=== PATIENT | male | born 1965 | race Caucasian/White ===

== ENCOUNTER 2017-01-23 07:54 | Outpatient (CLI) ==
[2017-01-23 08:07] LABS: BASOPHILS % (AUTO) 0.4 % (0.0-3.0); EOSINOPHILS # (AUTO) 0.3 K/ul (0.0-0.7); EOSINOPHILS % (AUTO) 3.2 % (0.0-7.0); HEMATOCRIT 47.2 % (42.0-52.0); HEMOGLOBIN 15.9 g/dl (14.0-18.0); IMMATURE GRANULOCYTE % (AUTO) 0.2 % (0.0-5.0); LYMPHOCYTES % (AUTO) 39.9 (10.0-50.0); MEAN CORPUSCULAR HEMOGLOBIN 31.1 pg (27.0-31.0); MEAN CORPUSCULAR HGB CONC 33.7 (31.8-35.4); MEAN CORPUSCULAR VOLUME 92.2 fl (80.0-94.0); MONOCYTES # (AUTO) 0.9 K/uL (0.4-2.0); MONOCYTES % (AUTO) 8.8 (0-10); NEUTROPHILS # (AUTO) 4.8 K/ul (2.0-6.9); NEUTROPHILS % (AUTO) 47.5; PLATELET COUNT 241 10^3/uL (140-440); RED BLOOD COUNT 5.12 10^6/ul (4.70-6.10); WHITE BLOOD COUNT 10.09 K/ul (4.2-10.2)
[2017-01-23 08:49] LABS: ALBUMIN 3.7 g/dL (3.4-5.0); ALBUMIN/GLOBULIN RATIO 0.97; ANION GAP 13.3; BILIRUBIN,TOTAL 0.36 mg/dL (0.00-1.20); BUN/CREATININE RATIO 13.22; CALCIUM 9.5 mg/dL (8.2-10.2); CHOL/HDL RATIO 4.5 (4.5-6.4); CREATININE 1.21 mg/dL (0.60-1.10); POTASSIUM 4.3 mmol/L (3.5-5.1); TOTAL PROTEIN 7.5 g/dL (6.4-8.2)
== END 2017-01-23 07:55 | disposition home or self-care (01) ==
LOC: LAB 07:54
PROVIDERS: ATTEND Nurse Practitioner Family
DX: Z00.00 Encounter for general adult medical examination without abnormal findings (principal); Z72.0 Tobacco use; Z12.5 Encounter for screening for malignant neoplasm of prostate
CPT/HCPCS: 36415; 80053; 80061; 84443; 85025

== ENCOUNTER 2025-02-20 14:47 | Observation (INO) ==
[2025-02-20] MEDS: SODIUM CHLORIDE 500 ML IV ONE (15:11)
--- NOTE | 2025-02-20 15:22 | ED.PDOC ---
General ED Provider: Dr. MARIA ESTHER CHEN MD Chief Complaint: Shortness of Air Stated Complaint: Pt has h/o COPD on 2 liters of home O2 and has been diagnosed with left sided lung cancer in the past 2 weeks. Was seen here 3 days ago for SOB and diagnosed with pneumonia, pleural effusion and subsegmental PEs. He was sent home with rx for eliquis and cefdinir. He states he is taking the antibiotics as prescribed, but could not get the eliquis filled due to trouble with his insurance. He was feeling better and then started feeling more SOB last night. He went to [facility] ED and was just discharged from there 3 hours ago. Was given a dose of eliquis there. He states he started feeling SOB again just [employer] and came here. SOB mostly with any exertion. He denies increased cough, fever, chest pain, leg swelling, nausea or vomiting. He has upcoming appt with his PCP the beginning of March and does not yet have oncology appt. He states he does not have a nebulizer machine at home yet, but they are "working on getting one". Time Seen by Provider: 02/20/25 14:49 Mode of Arrival: Walk-In Information Source: Patient and Family Exam Limitations: No limitations Primary Care Provider: JORDAN QUINTANILLA MD Nursing and Triage Documentation Reviewed and Agree: Yes What is Opioid Naive?: *Opioid Naive implies the patient is not already taking opioids or not chronically receiving opioids on a daily basis. *PRN dosing is not "usually" associated with tolerance. *Patients are at higher risk of over-sedation and aspiration. What is Opioid Tolerant?: *Opioid Tolerance implies less than the expected response to an opioid. *Acquired tolerance is defined by the patient taking 60mg of oral morphine daily (or equianalgesic dose of another opioid) for 1 week or more. *Often associated with chronic pain. *May take more than usual dose to achieve desired pain control. Review of Systems Review Of Systems Constitutional: Reports No symptoms PFSH Family History Mother Cardiac disease Lung cancer FATHER Cardiac disease [place] Surgical History History of dental surgery Z92.89 - Personal history of other medical treatment (ICD-10) Physical Exam Physical Exam Appearance: Reports Cachectic Ill-appearing: None Pain Distress: None Eyes: Reports Conjunctiva clear ENT: Reports Nose normal Neck: Supple Respiratory: Reports Airway patent and Respirations nonlabored; Denies Breath sounds equal (decreased air movement to left lung. ) Cardiovascular: Reports RRR and Pulses normal GI/: Reports Soft and Nontender Musculoskeletal: Denies Edema Skin: Reports Warm and Dry Neurological: Reports Alert Psychiatric: Reports Affect appropriate Interpretation EKG Interpretation EKG Interpretation By: ED Physician Time of EKG #1: 15:23 Rate: Normal Rhythm: Sinus Ectopy: None ST Segment: Normal Interpretation: IRBBB. Radiology Interpretation Radiology Interpretation By: Radiologist Radiology Results: No acute changes Exam Interpreted: CXR Re-Evaluation Re-Evaluation Additional Comments: Discussed lab, EKG and CXR results with patient. His CXR is unchanged from 3 days ago. Labs show leukocytosis, otherwise fairly unremarkable with negative troponin, elevated BNP. Pt has had soft BP with MAP around 65, but he is not lightheaded or dizzy or otherwise symptomatic. His O2 sats on his typical 2 liters have been in high 90s and he is resting comfortably. Given his multiple ED visits, I feel he would benefit from overnight observation to monitor his BP, start him on blood thinners for PE, attempt to get home nebulizer set-up for him. Pt is agreeable to stay. I spoke with Jay Blevins hospitalist HEALTHCARE APPLICATIONS ANALYST, who has agreed to admit patient. Physician Notification Case Discussed Physician Notified: jaleesa Raymond HEALTHCARE APPLICATIONS ANALYST Time of Notification: 16:30 Comments: Agrees to admit to obs Course Course 02/20/25 15:12 02/20/25 15:15 Orders, Labs, Meds: Lab Review 02/20/25 02/20/25 15:12 15:15 WBC 15.68 H RBC 4.47 L Hgb 13.1 L Hct 41.7 L MCV 93.3 MCH 29.3 MCHC 31.4 L RDW Coeff of Debi 14.5 Plt Count 678 H Immature Gran % (Auto) 1.2 Neut % (Auto) 86.7 H Lymph % (Auto) 4.0 L Yell % (Auto) 7.3 Eos % (Auto) 0.7 Baso % (Auto) 0.1 Neut # (Auto) 13.6 H Lymph # (Auto) 0.6 Yell # (Auto) 1.2 Eos # (Auto) 0.1 Baso # (Auto) 0.0 Immature Gran # (Auto) 0.2 Sodium 136.2 Potassium 4.37 Chloride 92.5 L Carbon Dioxide 33.9 H Anion Gap 14.17 BUN 44.2 H Creatinine 1.29 H Estimated GFR (MDRD) 57.00 BUN/Creatinine Ratio 34.26 Glucose 143.9 H Calcium 12.73 H Total Bilirubin 0.61 AST 91.4 H ALT 40.6 Alkaline Phosphatase 93.0 Troponin I 0.057 NT-Pro-B Natriuret Pep 4830 H Total Protein 7.94 Albumin 3.59 Globulin 4.35 Albumin/Globulin Ratio 0.82 SARS CoV-2 RNA Rapid [place] Negative Orders Category Date Time Status EKG-(ED ONLY) Stat CARDIO 02/20/25 15:11 Completed NEBULIZER TREATMENT Stat CARDIO 02/20/25 15:17 Completed PULSE OX [CONTINUOUS PULSE OX (NURSING)] PULSEOX CARE 02/20/25 15:12 Active Sand[employer] Carrier [ED HOP SEPARATOR APPLIED] .ONCE EMERGENCY 02/20/25 15:11 Active IV [ED IV/MEDIPORT/POWERPORT] .ONCE EMERGENCY 02/20/25 15:11 Active OXYGEN [ED APPLY O2] .ONCE EMERGENCY 02/20/25 15:11 Active CBC W/ AUTO DIFF Stat LAB 02/20/25 15:12 Completed CMP [COMPREHENSIVE METABOLIC PANEL] Stat LAB 02/20/25 15:15 Completed COVID [SARS COV-2 RNA RAPID [place]] Stat LAB 02/20/25 15:15 Completed NT-PROBNP(ED) Stat LAB 02/20/25 15:15 Completed TROPONIN I Stat LAB 02/20/25 15:15 Completed 0.9 % Sodium Chloride [Saline Flush] Meds 02/20/25 15:11 Active 1 syr IVF PRN PRN Ipratropium/Albuterol Neb [Duoneb] Meds 02/20/25 15:17 Discontinued 3 ml NEB ONCE STA Sodium Chloride 0.9% [Sodium Chloride] 500 ml Meds 02/20/25 15:11 Discontinued IV BOLUS CXR [CHEST, 1V AP ONLY] Stat RADS 02/20/25 15:11 Completed Medications Generic Name Dose Route Start Last Admin Trade Name Freq PRN Reason Stop Dose Admin Sodium Chloride 1 syr 02/20/25 15:11 0.9% Sodium Chloride 10 Ml Disp.Syrin IVF PRN PRN To flush IV Discontinued Medications Generic Name Dose Route Start Last Admin Trade Name Freq PRN Reason Stop Dose Admin Albuterol/Ipratropium 3 ml 02/20/25 15:17 02/20/25 15:45 Ipratropium/Albuterol Vial.Neb NEB 02/20/25 15:18 3 ml ONCE STA Administration Sodium Chloride 500 mls @ 500 mls/hr 02/20/25 15:11 02/20/25 16:12 Sodium Chloride IV 02/20/25 16:10 Infused BOLUS ONE Infusion Vital Signs: Temp Pulse Resp BP Pulse Ox O2 Flow Rate 02/20/25 15:20 2 02/20/25 14:53 98.1 F 101 H 20 73/46 L 98 Discharge Plan Discharge Patient Disposition: PLACED OBSERVATION Discharge Problem: Shortness of breath, Mass of left lung Pulmonary embolism Qualifiers: Pulmonary embolism type: multiple subsegmental (without acute cor pulmonale) Q ualified Code(s): I26.94 - Multiple subsegmental thrombotic pulmonary emboli without acute cor pulmonale COPD (chronic obstructive pulmonary disease) Qualifiers: COPD type: COPD with acute exacerbation Qualified Code(s): J44.1 - Chronic obstructive pulmonary disease with (acute) exacerbation Did you review [place] WIG [employer]ER for ALL controlled substances?: Not Applicable ED Provider: MARIA ESTHER CHEN Condition: Stable
[2025-02-20 15:23] LABS: BASOPHILS % (AUTO) 0.1 % (0.0-3.0); EOSINOPHILS # (AUTO) 0.1 K/ul (0.0-0.7); EOSINOPHILS % (AUTO) 0.7 % (0.0-7.0); HEMATOCRIT 41.7 % (42.0-52.0); HEMOGLOBIN 13.1 g/dl (14.0-18.0); IMMATURE GRANULOCYTE # (AUTO) 0.2 (0.0-1.0); IMMATURE GRANULOCYTE % (AUTO) 1.2 % (0.0-5.0); LYMPHOCYTES # (AUTO) 0.6 K/uL (0.60-3.4); MEAN CORPUSCULAR HEMOGLOBIN 29.3 pg (27.0-31.0); MEAN CORPUSCULAR HGB CONC 31.4 (31.8-35.4); MEAN CORPUSCULAR VOLUME 93.3 fl (80.0-94.0); MONOCYTES # (AUTO) 1.2 K/uL (0.4-2.0); MONOCYTES % (AUTO) 7.3 (0-10); NEUTROPHILS # (AUTO) 13.6 K/ul (2.0-6.9); NEUTROPHILS % (AUTO) 86.7 % (42.2-75.2); PLATELET COUNT 678 10^3/uL (140-440); RDW COEFFICIENT OF VARIATION 14.5 % (11.6-14.8); RED BLOOD COUNT 4.47 10^6/ul (4.70-6.10); WHITE BLOOD COUNT 15.68 K/ul (4.2-10.2)
[2025-02-20 15:40] LABS: SARS COV-2 RNA RAPID NAAT NEGATIVE (NEGATIVE)
[2025-02-20 15:42] LABS: ALANINE AMINOTRANSFERASE 40.6 U/L (0-50); ALBUMIN 3.59 g/dL (3.5-5.0); ASPARTATE AMINO TRANSFERASE 91.4 U/L (17-59); BILIRUBIN,TOTAL 0.61 mg/dL (0.2-1.3); BLOOD UREA NITROGEN 44.2 mg/dL (9-20); CALCIUM 12.73 mg/dL (8.4-10.2); CARBON DIOXIDE 33.9 mmol/L (22-30.0); CHLORIDE 92.5 mmol/L (98-107); CREATININE 1.29 mg/dL (0.60-1.10); GLUCOSE 143.9 mg/dL (74-106); POTASSIUM 4.37 mmol/L (3.5-5.1); SODIUM 136.2 mmol/L (134.5-145); TOTAL PROTEIN 7.94 g/dL (6.3-8.2)
[2025-02-20] MEDS: DUONEB NEB STA (15:45)
[2025-02-20 15:54] LABS: TROPONIN I 0.057 ng/ml (0.0000-0.120)
--- NOTE | 2025-02-20 16:26 | DI ---
EXAM: CHEST ONE VIEW, FRONTAL VIEW ONLY. HISTORY: Cough right base. Vomiting. COMPARISON: CT 02/17/2025. FINDINGS: Heart size normal. Mediastinal lymphadenopathy and extensive mass-like consolidation in t he left lung again noted along with left pleural effusion. The band-like opacity in the right upper lobe again noted. Calcified granulomatous changes present. There is no new opacity. No pneumothora x identified. No acute osseous abnormality is seen. IMPRESSION: Stable appearance of the chest.
[2025-02-20 18:04] VITALS: BMI 15.0
[2025-02-20] MEDS: DUONEB NEB SCH (18:07)
[2025-02-20] MEDS ORDERED: DESYREL PO PRN (18:13)
[2025-02-20] MEDS ORDERED: VENTOLIN HFA IH PRN ×2 (18:13)
[2025-02-20] MEDS: SODIUM CHLORIDE 1,000 ML IV SCH (18:38)
[2025-02-20] MEDS: ZOSYN 4.5 GM 4.5 GM in SODIUM CHLORIDE 100ML 100 ML IV SCH (18:41)
[2025-02-20] MEDS: PREDNISONE PO SCH (20:55)
[2025-02-20] MEDS: LOVENOX SUBCUT SCH (20:55)
[2025-02-21] MEDS: ZANAFLEX PO PRN (05:20)
[2025-02-21 05:40] LABS: BASOPHILS % (AUTO) 0.1 % (0.0-3.0); EOSINOPHILS # (AUTO) 0.1 K/ul (0.0-0.7); EOSINOPHILS % (AUTO) 0.5 % (0.0-7.0); HEMATOCRIT 40.2 % (42.0-52.0); HEMOGLOBIN 12.5 g/dl (14.0-18.0); IMMATURE GRANULOCYTE # (AUTO) 0.2 (0.0-1.0); IMMATURE GRANULOCYTE % (AUTO) 1.2 % (0.0-5.0); LYMPHOCYTES # (AUTO) 0.7 K/uL (0.60-3.4); LYMPHOCYTES % (AUTO) 5.4 (10.0-50.0); MEAN CORPUSCULAR HEMOGLOBIN 29.6 pg (27.0-31.0); MEAN CORPUSCULAR HGB CONC 31.1 (31.8-35.4); MONOCYTES # (AUTO) 0.7 K/uL (0.4-2.0); MONOCYTES % (AUTO) 5.3 (0-10); NEUTROPHILS # (AUTO) 11.2 K/ul (2.0-6.9); NEUTROPHILS % (AUTO) 87.5 % (42.2-75.2); PLATELET COUNT 555 10^3/uL (140-440); RDW COEFFICIENT OF VARIATION 14.5 % (11.6-14.8); RED BLOOD COUNT 4.23 10^6/ul (4.70-6.10); WHITE BLOOD COUNT 12.77 K/ul (4.2-10.2)
[2025-02-21 05:55] LABS: ALANINE AMINOTRANSFERASE 37.4 U/L (0-50); ALBUMIN 3.18 g/dL (3.5-5.0); ALKALINE PHOSPHATASE 87.2 U/L (56-119); BILIRUBIN,TOTAL 0.48 mg/dL (0.2-1.3); BLOOD UREA NITROGEN 41.1 mg/dL (9-20); CALCIUM 12.21 mg/dL (8.4-10.2); CARBON DIOXIDE 33.1 mmol/L (22-30.0); CHLORIDE 96.8 mmol/L (98-107); CREATININE 1.32 mg/dL (0.60-1.10); GLUCOSE 126.1 mg/dL (74-106); POTASSIUM 4.07 mmol/L (3.5-5.1); SODIUM 138.9 mmol/L (134.5-145); TOTAL PROTEIN 6.83 g/dL (6.3-8.2)
[2025-02-21 06:10] LABS: ASPARTATE AMINO TRANSFERASE 69.2 U/L (17-59)
[2025-02-21] MEDS: TYLENOL PO PRN (06:38)
[2025-02-21] MEDS: MAG-OX PO SCH (08:48)
[2025-02-21] MEDS: JARDIANCE PO SCH (08:48)
[2025-02-21] MEDS: LASIX IVP STA (09:56)
[2025-02-21 10:16] LABS: BILIRUBIN,URINE Negative (NEGATIVE); CLARITY,URINE Clear (CLEAR); COLOR,URINE Yellow (YELLOW); GLUCOSE, URINE (UA) 2+ (NEGATIVE); KETONES,URINE Negative (NEGATIVE); LEUKOCYTE ESTERASE ,URINE Negative (NEGATIVE); NITRITE,URINE Negative (NEGATIVE); PH,URINE 5.5 (5-9); PROTEIN,URINE Negative (NEGATIVE); URINE, BLOOD Negative (NEGATIVE); UROBILINOGEN,URINE 0.2 (0.2)
--- NOTE | 2025-02-21 11:03 | PCM ---
Date of Service Date Seen by Provider: 02/21/25 Time Seen by Provider: 08:50 Admit Day/Time Admission Date: 02/20/25 Admission Time: 16:45 Reason for Admission Chief Complaint: SOA, COPD, LUNG MASS Hospital Provider Hospital Provider: TOMAS ENRIQUEZ, [facility] Primary Care Physician Primary Care Physician: JORDAN ESCOBAR MD History of Present Illness History of Present Illness: 59 yo male with recent diagnosis of lung mass, ventricular tachycardia, systolic HFrEF, and COPD presented to the ER for shortness of breath. 02/02/25: Patient collapsed at home. EMS found patient to be in vtach. He was given adenosine, then cardioverted, with return to sinus rhythm. Admitted to ICU where he was initially hypotensive. Placed on amiodarone drip per Cardiology. Declined LifeVest and AICD placement. Cardiac MRI requested. Patient then became DNR and declined additional aggressive management. While awaiting hospice arrangements on 02/03/25, patient decided he would like to undergo further test ing. Reassessment by cardiology continued oral amiodarone, daily EKGs and no recurrence of arrhythmias. Patient was found to have a left lower lobe lung mass likely malignant with associated left pleural effusion, and mediastinal lymphadenopathy. Repeat echo showed decreased systolic function. EF 41-45%. Patient had noticed hypercalcemia likely associated with malignant neoplasm. On 02/08/25, he underwent a fiberoptic bronchoscopy, endobronchial ultrasound, and transbronchial needle aspiration by Dr. Basilio of Pulmonology. 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 Recommended follow-up with Nurseryman Assistant regarding systolic heart failure upon discharge. Heart cath completed by [facility] in January with no CAD prior to admission. A referral was made to hem/onc and recommend dye lab technician to follow biopsy results. Patient was also seen in this ER on 02/17. CT scan at that time showed segmental PE as well as poss consolidation and discharged home with eliquis (in which he was unable to fill and afford), cefepime, azith, and steroids. He returned to [facility] [place] ER on 02/19/25 and was told to continue his antibiotics, picker tender his Rx for eliquis, and given a dose of lasix. At this time, patient is awaiting to hear from referrals. He was sent home on oxygen continuous at 2lpm. States he has continued to worsen and shortness of breath continues to make it difficult to perform ADLs including conversation. Asked provider to speak with about above details. Upon arrival to ER, patient was hypotensive and tachycardic. 500mL bolus of NS was given with mild increase in BP. White count elevated at 15.68. Procal added on and was 2. Blood cultures obtained. UA negative. Chest x-ray similar to previous. Admitted to med/surg observation. Case Discussed With Case Discussed With: Patient's case was discussed with the ER Physicians, Dr. Wilkerson. [facility] Medical History (Updated 02/21/25 @ 11:36 by TOMAS ENRIQUEZ) Heart failure with reduced ejection fraction due to cardiomyopathy I50.20 - Unspecified systolic (congestive) heart failure (ICD-10) I42.9 - Cardiomyopathy, unspecified (ICD-10) Ventricular tachycardia I47.20 - Ventricular tachycardia, unspecified (ICD-10) Surgical History History of dental surgery Z92.89 - Personal history of other medical treatment (ICD-10) Family History Mother Cardiac disease Lung cancer FATHER Cardiac disease [place] Allergies Allergies Allergy/AdvReac Type Severity Reaction Status Date / Time codeine Allergy Intermediate itching Verified 02/20/25 14:58 Current Medications Home Medications Acetaminophen (Acetaminophen 325 Mg Tablet) 650 mg PO Q4H PRN PRN Reason: Mild Pain Last Admin: 02/21/25 06:38 Dose: 650 mg Albuterol Sulfate (Albuterol Sulfate 8 Gm Inhaler) 2 puff IH Q4-6H PRN PRN Reason: Wheezing Albuterol/Ipratropium (Ipratropium/Albuterol Vial.Neb) 3 ml NEB RTQ6H NISHANT Last Admin: 02/21/25 11:25 Dose: 3 ml Amiodarone HCl (Amiodarone Hcl 200 Mg Tablet) 200 mg PO Q12HR NISHANT Stop: 02/23/25 22:00 Amiodarone HCl (Amiodarone Hcl 200 Mg Tablet) 200 mg PO DAILY NISHANT Empagliflozin (Empagliflozin 10 Mg Tablet) 10 mg PO DAILY [facility] Last Admin: 02/21/25 08:48 Dose: 10 mg Enoxaparin Sodium (Enoxaparin Sodium 60 Mg/0.6 Ml Syr) 60 mg SUBCUT Q12HR [facility] Last Admin: 02/21/25 08:48 Dose: 60 mg Piperacillin Sod/Tazobactam (Sod 4.5 gm/ Sodium Chloride) 100 mls @ 200 mls/hr IV Q6HR [facility] Stop: 02/23/25 17:59 Last Admin: 02/21/25 11:17 Dose: 200 mls/hr Magnesium Oxide (Magnesium Oxide 400 Mg Tablet) 400 mg PO DAILY [facility] Last Admin: 02/21/25 08:48 Dose: 400 mg Mirtazapine (Mirtazapine 15 Mg Tablet) 15 mg PO BEDTIME NISHANT Prednisone (Prednisone 20 Mg Tablet) 20 mg PO BID [facility] Last Admin: 02/21/25 08:48 Dose: 20 mg Sodium Chloride (0.9% Sodium Chloride 10 Ml Disp.Syrin) 1 syr IVF PRN PRN PRN Reason: To flush IV Tizanidine HCl (Tizanidine Hcl 4 Mg Tablet) 4 mg PO Q8H PRN PRN Reason: Pain Last Admin: 02/21/25 05:20 Dose: 4 mg Trazodone HCl (Trazodone Hcl 50 Mg Tablet) 50 mg PO BEDTIME PRN PRN Reason: Insomnia albuterol sulfate 90 mcg/actuation aerosol inhaler 2 puff inhalation Q4-6H PRN shortness of breath or wheezing #8.5 grams 12/12/24 [Rx Confirmed 02/20/25] empagliflozin 10 mg tablet (Jardiance) 10 mg PO DAILY 01/15/25 [History Confirmed 02/20/25] losartan 25 mg tablet 25 mg PO DAILY 01/15/25 [History Confirmed 02/20/25] trazodone 50 mg tablet 50 mg PO QHS PRN sleep 01/15/25 [History Confirmed 02/20/25] albuterol sulfate 90 mcg/actuation aerosol inhaler 2 inh inhalation Q4H PRN shortness of breath or wheezing #8.5 grams 02/17/25 [Rx Confirmed 02/20/25] amiodarone 200 mg tablet 200 mg PO .COMPLEX 02/17/25 [History Confirmed 02/21/25] apixaban 5 mg (74 tabs) tablets in a dose pack (Eliquis DVT-PE Treat 30D Start) See Rx Instructions PO .COMPLEX #74 ea 02/17/25 [Rx Confirmed 02/20/25] magnesium oxide 400 mg (241.3 mg magnesium) tablet 400 mg PO DAILY 02/17/25 [History Confirmed 02/20/25] prednisone 20 mg tablet 20 mg PO BID 5 days #10 tabs 02/17/25 [Rx Confirmed 02/20/25] tizanidine 4 mg tablet 4 mg PO Q8H PRN muscle spasticity 02/17/25 [History Confirmed 02/20/25] mirtazapine 15 mg tablet 15 mg PO BEDTIME 02/20/25 [History Confirmed 02/20/25] Opioid Naive vs. Tolerant Does Patient Take Opioids?: No Is Patient Opioid Naive?: Yes What is Opioid Naive?: *Opioid Naive implies the patient is not already taking opioids or not chronically receiving opioids on a daily basis. *PRN dosing is not "usually" associated with tolerance. *Patients are at higher risk of over-sedation and aspiration. Is Patient Opioid Tolerant?: No What is Opioid Tolerant?: *Opioid Tolerance implies less than the expected response to an opioid. *Acquired tolerance is defined by the patient taking 60mg of oral morphine daily (or equianalgesic dose of another opioid) for 1 week or more. *Often associated with chronic pain. *May take more than usual dose to achieve desired pain control. Review of Systems Constitutional: Reports Weakness Head: Reports Normocephalic and Atraumatic Eyes: Reports No symptoms Ears: Reports No symptoms Nose: Reports No symptoms Mouth: Reports No symptoms Throat: Reports No symptoms Cardiovascular: Reports No symptoms Respiratory: Reports Shortness of air Gastrointestinal: Reports No symptoms Genitourinary: Reports No Symptoms Musculoskeletal: Reports No symptoms Endocrine: Reports No symptoms Hematology: Reports No symptoms Immunology: Reports No symptoms Neurological: Reports No symptoms Physical examination Most Recent Vital Signs: Most Recent Vital Signs Temperature 97.4 F L 02/21/25 09:35 Temperature Source Tympanic 02/21/25 09:35 Temperature Source Temporal Artery Scan 02/20/25 14:53 Pulse Rate 69 02/21/25 09:35 Respiratory Rate 18 02/21/25 09:35 Blood Pressure 105/64 02/21/25 09:35 Blood Pressure Mean 77 02/21/25 09:35 Blood Pressure Left Arm 93/66 02/20/25 17:34 Blood Pressure Location Right Arm 02/21/25 09:35 Blood Pressure Position Sitting 02/21/25 09:35 O2 Sat by Pulse Oximetry 99 02/21/25 09:50 Oxygen Delivery Method Nasal Cannula 02/21/25 10:00 Oxygen Flow Rate 2 02/21/25 09:50 Height 6 ft 2 in 02/21/25 09:24 Weight 53.3 kg 02/21/25 09:24 Telemetry Type Remote Telemetry 02/21/25 07:00 Telemetry Monitoring Continues 02/21/25 07:00 Telemetry Heart Rate 64 02/21/25 07:00 Telemetry SPO2 96 02/21/25 07:00 EKG ME Interval 0.14 02/21/25 07:00 EKG QRS Interval 0.08 02/21/25 07:00 Telemetry Strip Reading SR w/ PAC 02/21/25 07:00 Pulse Oximetry Type Remote Telemetry 02/21/25 07:00 Pulse Oximetry Monitoring Continues 02/21/25 07:00 Appearance: Positive Alert and Oriented x3, Ill-Appearing, Thin and Cachectic Skin: Positive Warm and Other (pale) HEENT: Positive Normocephalic and PERRLA Neck: Positive Supple and Midline Trachea Chest/Lungs: Positive Other (no lung sounds to entire L lung, clear to auscultation of R lung with good air movement); Negative Symmetrical With Equal Breath Sounds, Clear to Auscultation Bilaterally, Rales, Rhonci, Wheezes, Good Air Movement all 4 Lung Monet or Tenderness Upon Chest Palpation Heart: Positive RRR and Pulses Normal GI/: Positive Soft, Nontender, Bowel Sounds Normal and No Distention Musculoskeletal: Positive Not Examined Extremities: Positive Intact Peripheral Pulses, Stable Joints Without Laxity, Good ROM in All Joints and Other (emaciated) Neurological: Positive Sensation Intact, Motor intact, Alert, Oriented and Other (generalized weakness) Psychiatric: Positive Oriented x4; Negative Appropriate Affect (flat) Labs This Visit Labs This Visit: Labs This Visit 02/20/25 02/20/25 02/21/25 15:12 15:15 05:30 WBC 15.68 H 12.77 H RBC 4.47 L 4.23 L Hgb 13.1 L 12.5 L Hct 41.7 L 40.2 L MCV 93.3 95.0 H MCH 29.3 29.6 MCHC 31.4 L 31.1 L RDW Coeff of Debi 14.5 14.5 Plt Count 678 H 555 H Immature Gran % (Auto) 1.2 1.2 Neut % (Auto) 86.7 H 87.5 H Lymph % (Auto) 4.0 L 5.4 L Pima % (Auto) 7.3 5.3 Eos % (Auto) 0.7 0.5 Baso % (Auto) 0.1 0.1 Neut # (Auto) 13.6 H 11.2 H Lymph # (Auto) 0.6 0.7 Pima # (Auto) 1.2 0.7 Eos # (Auto) 0.1 0.1 Baso # (Auto) 0.0 0.0 Immature Gran # (Auto) 0.2 0.2 Sodium 136.2 138.9 Potassium 4.37 4.07 Chloride 92.5 L 96.8 L Carbon Dioxide 33.9 H 33.1 H Anion Gap 14.17 13.07 BUN 44.2 H 41.1 H Creatinine 1.29 H 1.32 H Estimated GFR (MDRD) 57.00 55.00 BUN/Creatinine Ratio 34.26 31.13 Glucose 143.9 H 126.1 H Calcium 12.73 H 12.21 H Total Bilirubin 0.61 0.48 AST 91.4 H 69.2 H ALT 40.6 37.4 Alkaline Phosphatase 93.0 87.2 Troponin I 0.057 NT-Pro-B Natriuret Pep 4830 H Total Protein 7.94 6.83 Albumin 3.59 3.18 L Globulin 4.35 3.65 Albumin/Globulin Ratio 0.82 0.87 Procalcitonin 2.88 H 2.93 H Urine Color Urine Clarity Urine pH Ur Specific Comfort Urine Protein Urine Glucose (UA) Urine Ketones Urine Blood Urine Nitrite Urine Bilirubin Urine Urobilinogen Ur Leukocyte Esterase SARS CoV-2 RNA Rapid [place] Negative 02/21/25 10:00 WBC RBC Hgb Hct MCV MCH MCHC RDW Coeff of Debi Plt Count Immature Gran % (Auto) Neut % (Auto) Lymph % (Auto) Pima % (Auto) Eos % (Auto) Baso % (Auto) Neut # (Auto) Lymph # (Auto) Pima # (Auto) Eos # (Auto) Baso # (Auto) Immature Gran # (Auto) Sodium Potassium Chloride Carbon Dioxide Anion Gap BUN Creatinine Estimated GFR (MDRD) BUN/Creatinine Ratio Glucose Calcium Total Bilirubin AST ALT Alkaline Phosphatase Troponin I NT-Pro-B Natriuret Pep Total Protein Albumin Globulin Albumin/Globulin Ratio Procalcitonin Urine Color Yellow Urine Clarity Clear Urine pH 5.5 Ur Specific Comfort 1.020 Urine Protein Negative Urine Glucose (UA) 2+ H Urine Ketones Negative Urine Blood Negative Urine Nitrite Negative Urine Bilirubin Negative Urine Urobilinogen 0.2 Ur Leukocyte Esterase Negative SARS CoV-2 RNA Rapid [place] Imaging Imaging: Date of Service: 02/17/25 EXAM: CHEST RADIOGRAPH TECHNIQUE: Single frontal chest radiograph. HISTORY: Dyspnea. COPD. Lung cancer with recent lung biopsy. COMPARISON: 01/21/2025. FINDINGS: Worsening left pleural effusion and patchy airspace changes seen in the left mid to lower lung field. The remaining lung monet are clear. The apices continue to show continued chronic pleural thickening and scarring/post-inflammatory changes. Stable calcified granulomas in the right lung. No right effusion. No definitive pneumothorax. Cardiomediastinal silhouette and pulmonary vessels are within normal limits for the technique and rotation. Upper abdomen is unremarkable. No acute bony abnormality. IMPRESSION: 1. Worsening left pleural effusion with worsening airspace changes in the left lung, atelectasis versus pneumonia. 2. . No definitive pneumothorax. 3. . Chronic are again present without other acute changes. Date of Service: 02/17/25 EXAM: CHEST CTA WITH CONTRAST (PULMONARY ARTERY) HISTORY: Dyspnea. Elevated D-dimer. TECHNIQUE: CTA acquisition of the chest from the thoracic inlet to the upper abdomen following IV contrast administration timed to filling of the pulmonary artery. IV Contrast: 100 mL of Omnipaque 350 administered. 3D/MIP/VR images were utilized. CT Dose Reduction Techniques Employed: Yes. COMPARISON: 12/13/2024. FINDINGS: Pulmonary Embolism: - Diagnostic quality: Adequate. - Central (Main/Lobar/Interlobar): No embolus. - Peripheral (Segmental/Subsegmental): Positive segmental emboli seen in the left lingula and the superior aspect of the left upper lobe. No other discrete pulmonary emboli. - Right ventricle/Left ventricle ratio: Left ventricle measures 3.8 cm and the right ventricle measures 3.2 cm. Lines, Tubes, Devices: None. Lung Parenchyma and Airways: Central airways are patent without endobronchial lesion. There is continued post obstructive consolidation seen in the left lower lobe. No other consolidations. Emphysematous changes. The right apex continues to show a soft tissue density measuring at least 1.7 x 1.5 cm with associated scarring extending from the suprahilar region to the pleural surfaces with mild associated bronchiectasis. This is unchanged from the previous examination. No other discrete soft tissue nodules. Multiple right calcified granulomas. Pleural Space: Continued small left pleural effusion. No right effusion. No pneumothorax. Thoracic Inlet, Mediastinum, and Ayde: Thyroid gland is normal. Multiple enlarged mediastinal lymph nodes. Largest in the left AP window region measures 3.2 x 2.7 cm. Large subcarinal/left inferior ayde mass/lymph node is again present this measures approximately 9.4 x 6.6 cm this appears similar to the previous examination. Continued pretracheal enlarged lymph nodes. Lymph gisele mass surrounds the left mainstem bronchus causing compression of the mid aspect. The left lower lobe bronchi and distal bronchi are compressed and non aerated. Similar to the previous examination. No appreciable new adenopathy. Heart, Vessels, and Pericardium: The heart is normal size without pericardial effusion. Aorta shows minimal atherosclerotic calcific changes without aneurysm or dissection. Bones and Soft Tissues: There is a new mild compression of the superior endplate of the T3 vertebral body without retropulsion. Previous fracture of the left L3 transverse process, posterior 11th and 10th left ribs. Mild degenerative changes seen in the spine and sternal manubrial joint. Chest wall soft tissues are unremarkable. Upper Abdomen: Stable right renal cyst. The remaining visualized upper abdomen is unremarkable. IMPRESSION: 1. Positive segmental pulmonary embolus seen in the left lingula and the superior left upper lobe. No other discrete emboli. No right heart strain. 2. Continued large subcarinal /inferior left hilar mass causing continued compressive occlusion of the left lower lobe bronchi and post obstructive consolidation to the left lower lobe. 3.. Continued small left pleural effusion. 4. . The right apex continues show soft tissue density with adjacent scarring. Unsure if this is a true soft tissue nodule/mass versus postinflammatory process and scarring. 5. . There is a new mild compression of the superior endplate of the T3 vertebral body without retropulsion. 6. . Other chronic and non emergent findings as above. Date of Service: 02/20/25 EXAM: CHEST ONE VIEW, FRONTAL VIEW ONLY. HISTORY: Cough right base. Vomiting. COMPARISON: CT 02/17/2025. FINDINGS: Heart size normal. Mediastinal lymphadenopathy and extensive mass- like consolidation in the left lung again noted along with left pleural effusion. The band-like opacity in the right upper lobe again noted. Calcified granulomatous changes present. There is no new opacity. No pneumothorax identified. No acute osseous abnormality is seen. IMPRESSION: Stable appearance of the chest. Review Statement Review Statement: I have independently reviewed and interpreted the labs/EKGs/imaging that were ordered by the ER provider. I have reviewed all outside records that are available currently in our EMR including imaging/notes/labs from previous visits. Plan Plan: 1. Sepsis - wbc count, HR, and hypotensive, blood cultures pending, started zosyn due to suspect superimposed pneumonia on lung mass, fluid bolus not given due to CHF 2. Suspect superimposed pneumonia on lung cancer - procal 2, checking legionella, strep pneumo, and sputum, has been hospitalized recently with recent biopsy, covering with zosyn, nebs 3. Chronic respiratory failure due to lung mass - continue home oxygen, nebs 4. Systolic HFrEF - EF 41-45%, life vest and AICD placement recommended but patient refused. continue current regimen per cardiology 5. Small Cell Carcinoma of L lung - oncology referral sent by [facility] [place], needs pulm referral on discharge, adding norco 5/325 for pain 6. Ventricular tachycardia - continue amiodarone 7. Hypotension - resolved, appeared hypovolemic per ER provider yesterday, IV fluids given overnight and stopped this am DVT Prophylaxis: Lovenox Time Spent: Greater than 80 minutes spent with patient, 50% of the time spent with this patient was devoted to counseling and coordination of care. Advanced Care Plannin minutes spent discussing advance care planning. Disposition: Admit to: Med/Surg Observation Full Code Discussed Plan of Care with Dr. Robert Escobar. Medications Medication Orders: Medications Ordered Category Date Time Status 0.9 % Sodium Chloride [Saline Flush] Meds 02/20/25 15:11 Active 1 syr IVF PRN PRN Acetaminophen [Tylenol] Meds 02/20/25 17:01 Active 650 mg PO Q4H PRN Albuterol Sulfate [Ventolin Hfa] Meds 02/20/25 18:13 Active 2 puff IH Q4-6H PRN Empaglifozin [Jardiance] Meds 02/21/25 09:00 Active 10 mg PO DAILY Enoxaparin Sodium [Lovenox] Meds 02/20/25 21:00 Active 60 mg SUBCUT Q12HR Ipratropium/Albuterol Neb [Duoneb] Meds 02/20/25 18:00 Active 3 ml NEB RTQ6H Magnesium Oxide [Mag-Ox] Meds 02/21/25 09:00 Active 400 mg PO DAILY Piperacillin Sodium/Tazobactam [Zosyn 4.5 gm] 4.5 gm Meds 02/20/25 18:00 Active 0.9 % Sodium Chloride [Sodium Chloride 100Ml] 100 ml IV Q6HR Prednisone Meds 02/20/25 21:00 Active 20 mg PO BID Tizanidine HCl [Zanaflex] Meds 02/20/25 18:13 Active 4 mg PO Q8H PRN Trazodone HCl [Desyrel] Meds 02/20/25 18:13 Active 50 mg PO BEDTIME PRN Additional Comments: Additional Comments: Spoke extensively with patient regarding options for referrals. Voiced to social worker assistant that he does not tolerate traveling long distances. However, patient's insurance does not provide outpatient services coverage to the closest area with specialists in [place] due to having [place] Medicaid. Discussed closest to this area would be [facility]. Agreeable at this time that this is the only option. Informed of option of Hospice as well if he does not wish to travel for further evaluations and treatment as options are limited in this area. Verbalized understanding and requested us to speak with his for further confirmation of this plan. She is in agreement to send to [facility]. toll test worker/senior program planner to start process.
[2025-02-21] MEDS: COLACE PO PRN (13:49)
[2025-02-21] MEDS: CORDARONE PO ONE (14:05)
[2025-02-21] MEDS: LOPRESSOR IVP ONE (15:37)
[2025-02-21] MEDS: OCEAN NASAL SPRAY NAS PRN (16:07)
[2025-02-21] MEDS: NORCO 5-325 PO PRN (19:06)
[2025-02-21] MEDS: CORDARONE PO SCH (20:01)
[2025-02-21] MEDS: REMERON PO SCH (20:01)
[2025-02-22 05:51] LABS: EOSINOPHILS % (AUTO) 0.1 % (0.0-7.0); HEMATOCRIT 39.6 % (42.0-52.0); IMMATURE GRANULOCYTE # (AUTO) 0.1 (0.0-1.0); LYMPHOCYTES # (AUTO) 0.5 K/uL (0.60-3.4); LYMPHOCYTES % (AUTO) 3.9 (10.0-50.0); MEAN CORPUSCULAR HEMOGLOBIN 28.8 pg (27.0-31.0); MEAN CORPUSCULAR HGB CONC 30.3 (31.8-35.4); MEAN CORPUSCULAR VOLUME 95.2 fl (80.0-94.0); MONOCYTES # (AUTO) 0.9 K/uL (0.4-2.0); MONOCYTES % (AUTO) 6.6 (0-10); NEUTROPHILS % (AUTO) 88.4 % (42.2-75.2); PLATELET COUNT 575 10^3/uL (140-440); RDW COEFFICIENT OF VARIATION 14.3 % (11.6-14.8); RED BLOOD COUNT 4.16 10^6/ul (4.70-6.10); WHITE BLOOD COUNT 13.57 K/ul (4.2-10.2)
[2025-02-22 05:54] LABS: ALANINE AMINOTRANSFERASE 54.9 U/L (0-50); ALBUMIN 3.16 g/dL (3.5-5.0); ALKALINE PHOSPHATASE 95.8 U/L (56-119); ASPARTATE AMINO TRANSFERASE 83.6 U/L (17-59); BILIRUBIN,TOTAL 0.4 mg/dL (0.2-1.3); BLOOD UREA NITROGEN 38.5 mg/dL (9-20); CALCIUM 12.05 mg/dL (8.4-10.2); CARBON DIOXIDE 36.3 mmol/L (22-30.0); CHLORIDE 96.3 mmol/L (98-107); CREATININE 1.31 mg/dL (0.60-1.10); GLUCOSE 97.1 mg/dL (74-106); POTASSIUM 4.08 mmol/L (3.5-5.1); SODIUM 138.2 mmol/L (134.5-145); TOTAL PROTEIN 6.71 g/dL (6.3-8.2)
[2025-02-22 10:02] VITALS: BP 97/66; PULSE 80; RESP 16; TEMP 97.8
--- NOTE | 2025-02-22 10:53 | DCSUM ---
Admission Date Admission Date: 02/20/25 Discharge Date Discharge Date: 02/22/25 Admission Diagnosis Admission Diagnosis: 1. Sepsis 2. Suspect superimposed pneumonia on lung cancer 3. Chronic respiratory failure due to lung mass 4. Systolic HFrEF 5. Small Cell Carcinoma of L lung 6. Ventricular tachycardia 7. Hypotension Discharge Diagnosis Discharge Diagnosis: 1. Sepsis - Ruled out 2. Suspect superimposed pneumonia on lung cancer - Improving 3. Chronic respiratory failure due to lung mass - continue home oxygen, nebs 4. Systolic HFrEF - EF 41-45%, life vest and AICD placement recommended but patient refused. continue current regimen per cardiology 5. Small Cell Carcinoma of L lung - oncology and pulmonary referrals sent to [facility] 6. Ventricular tachycardia - continue amiodarone 7. Hypotension - Resolved Hospital Provider Hospital Provider: [facility] Primary Care Physician Primary Care Physician: JORDAN ESCOBAR MD Summary of History and Physical Summary of History and Physical: 59 yo male with recent diagnosis of lung mass, ventricular tachycardia, systolic HFrEF, and COPD presented to the ER for shortness of breath. 02/02/25: Patient collapsed at home. EMS found patient to be in vtach. He was given adenosine, then cardioverted, with return to sinus rhythm. Admitted to ICU where he was initially hypotensive. Placed on amiodarone drip per Cardiology. Declined LifeVest and AICD placement. Cardiac MRI requested. Patient then became DNR and declined additional aggressive management. While awaiting hospice arrangements on 02/03/25, patient decided he would like to undergo further testing. Reassessment by cardiology continued oral amiodarone, daily EKGs and no recurrence of arrhythmias. Patient was found to have a left lower lobe lung mass likely malignant with associated left pleural effusion, and mediastinal lymphadenopathy. Repeat echo showed decreased systolic function. EF 41-45%. Patient had noticed hypercalcemia likely associated with malignant neoplasm. On 02/08/25, he underwent a fiberoptic bronchoscopy, endobronchial ultrasound, and transbronchial needle aspiration by Dr. Basilio of Pulmonology. 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 Recommended follow-up with [facility] regarding systolic heart failure upon discharge. Heart cath completed by [facility] in January with no CAD prior to admission. 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 Patient was also seen in this ER on 02/17. CT scan at that time showed segmental PE as well as poss consolidation and discharged home with eliquis (in which he was unable to fill and afford), cefepime, azith, and steroids. 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 At this time, patient is awaiting to hear from referrals. He was sent home on oxygen continuous at 2lpm. States he has continued to worsen and shortness of breath continues to make it difficult to perform ADLs including conversation. Asked provider to speak with about above details. Upon arrival to ER, patient was hypotensive and tachycardic. 500mL bolus of NS was given with mild increase in BP. White count elevated at 15.68. Procal added on and was 2. Blood cultures obtained. UA negative. Chest x-ray similar to previous. Admitted to med/surg observation. Hospital Course Subjective: During stay, sepsis workup was negative. Blood cultures neg. Suspect superimposed pneumonia on lung cancer based on x-ray showing consolidation. Treated with zosyn. No fever present >24 hours. Home O2 requirements maintained. Continued nebs and steroids. Patient was initially hypotensive in ER. Gave IV fluids overnight and resolved. 1 dose of lasix given yesterday due to HF history and risk of overload. Procal has remained elevated and suspect this is due to malignant lung cancer. White count mildly elevated but has been taking steroids. Patient had initially been referred to [facility] oncology for lung cancer. However, [place] medicaid [place] not [place] there thus patient is unable to receive care due to cost. New referrals sent to [facility] hem/onc and pulmonology. Started on norco for pain control due to continued complaints of back pain during stay. Of note, patient was noted to have PE during CTA completed on 02/17. Sent home with eliquis but never picked up due to cost. Has not completed high dose course for PE. Samples provided from PCP office. Has received lovenox in house due to making arrangements for discharge anticoagulation. He is to complete 5 days of 10 mg twice a day then 5 mg twice a day thereafter. D/c with rx for duonebs, colace, norco, augmentin, and course of doxycyline. Appearance: Pleasant, No Apparent Distress, Alert and Ill-appearing HEENT: MMM and Supple CVS: No Murmur and No Rubs Abdomen: Soft and Non-Tender Respiratory: Other (absent breath sounds to L lung, R lung good air movement, clear to auscultation) Extremities: No Edema Vital Signs: Most Recent Vital Signs Temperature 97.8 F 02/22/25 10:00 Temperature Source Temporal Artery Scan 02/22/25 10:00 Temperature Source Temporal Artery Scan 02/20/25 14:53 Pulse Rate 80 02/22/25 10:00 Respiratory Rate 16 02/22/25 10:00 Blood Pressure 97/66 02/22/25 10:00 Blood Pressure Mean 76 02/22/25 10:00 Blood Pressure Left Arm 93/66 02/20/25 17:34 Blood Pressure Location Right Arm 02/22/25 10:00 Blood Pressure Position Supine 02/22/25 10:00 O2 Sat by Pulse Oximetry 97 02/22/25 10:00 Oxygen Delivery Method Room Air 02/22/25 10:00 Oxygen Flow Rate 2 02/22/25 10:00 Height 6 ft 2 in 02/21/25 09:24 Weight 53.3 kg 02/21/25 09:24 Telemetry Type Remote Telemetry 02/22/25 01:00 Telemetry Monitoring Continues 02/22/25 01:00 Telemetry Heart Rate 78 02/22/25 01:00 Telemetry SPO2 98 02/22/25 01:00 EKG NJ Interval 0.20 02/22/25 01:00 EKG QRS Interval 0.07 02/22/25 01:00 Telemetry Strip Reading SR 02/22/25 01:00 Pulse Oximetry Type Remote Telemetry 02/22/25 01:00 Pulse Oximetry Monitoring Continues 02/22/25 01:00 Imaging: Date of Service: 02/17/25 EXAM: CHEST RADIOGRAPH TECHNIQUE: Single frontal chest radiograph. HISTORY: Dyspnea. COPD. Lung cancer with recent lung biopsy. COMPARISON: 01/21/2025. FINDINGS: Worsening left pleural effusion and patchy airspace changes seen in the left mid to lower lung field. The remaining lung charles are clear. The apices continue to show continued chronic pleural thickening and scarring/post-inflammatory changes. Stable calcified granulomas in the right lung. No right effusion. No definitive pneumothorax. Cardiomediastinal silhouette and pulmonary vessels are within normal limits for the technique and rotation. Upper abdomen is unremarkable. No acute bony abnormality. IMPRESSION: 1. Worsening left pleural effusion with worsening airspace changes in the left lung, atelectasis versus pneumonia. 2. . No definitive pneumothorax. 3. . Chronic are again present without other acute changes. Date of Service: 02/17/25 EXAM: CHEST CTA WITH CONTRAST (PULMONARY ARTERY) HISTORY: Dyspnea. Elevated D-dimer. TECHNIQUE: CTA acquisition of the chest from the thoracic inlet to the upper abdomen following IV contrast administration timed to filling of the pulmonary artery. IV Contrast: 100 mL of Omnipaque 350 administered. 3D/MIP/VR images were utilized. CT Dose Reduction Techniques Employed: Yes. COMPARISON: 12/13/2024. FINDINGS: Pulmonary Embolism: - Diagnostic quality: Adequate. - Central (Main/Lobar/Interlobar): No embolus. - Peripheral (Segmental/Subsegmental): Positive segmental emboli seen in the left lingula and the superior aspect of the left upper lobe. No other discrete pulmonary emboli. - Right ventricle/Left ventricle ratio: Left ventricle measures 3.8 cm and the right ventricle measures 3.2 cm. Lines, Tubes, Devices: None. Lung Parenchyma and Airways: Central airways are patent without endobronchial lesion. There is continued post obstructive consolidation seen in the left lower lobe. No other consolidations. Emphysematous changes. The right apex continues to show a soft tissue density measuring at least 1.7 x 1.5 cm with associated scarring extending from the suprahilar region to the pleural surfaces with mild associated bronchiectasis. This is unchanged from the previous examination. No other discrete soft tissue nodules. Multiple right calcified granulomas. Pleural Space: Continued small left pleural effusion. No right effusion. No pneumothorax. Thoracic Inlet, Mediastinum, and Ayde: Thyroid gland is normal. Multiple enlarged mediastinal lymph nodes. Largest in the left AP window region measures 3.2 x 2.7 cm. Large subcarinal/left inferior ayde mass/lymph node is again present this measures approximately 9.4 x 6.6 cm this appears similar to the previous examination. Continued pretracheal enlarged lymph nodes. Lymph gisele mass surrounds the left mainstem bronchus causing compression of the mid aspect. The left lower lobe bronchi and distal bronchi are compressed and non aerated. Similar to the previous examination. No appreciable new adenopathy. Heart, Vessels, and Pericardium: The heart is normal size without pericardial effusion. Aorta shows minimal atherosclerotic calcific changes without aneurysm or dissection. Bones and Soft Tissues: There is a new mild compression of the superior endplate of the T3 vertebral body without retropulsion. Previous fracture of the left L3 transverse process, posterior 11th and 10th left ribs. Mild degenerative changes seen in the spine and sternal manubrial joint. Chest wall soft tissues are unremarkable. Upper Abdomen: Stable right renal cyst. The remaining visualized upper abdomen is unremarkable. IMPRESSION: 1. Positive segmental pulmonary embolus seen in the left lingula and the superior left upper lobe. No other discrete emboli. No right heart strain. 2. Continued large subcarinal /inferior left hilar mass causing continued compressive occlusion of the left lower lobe bronchi and post obstructive consolidation to the left lower lobe. 3.. Continued small left pleural effusion. 4. . The right apex continues show soft tissue density with adjacent scarring. Unsure if this is a true soft tissue nodule/mass versus postinflammatory process and scarring. 5. . There is a new mild compression of the superior endplate of the T3 vertebral body without retropulsion. 6. . Other chronic and non emergent findings as above. Date of Service: 02/20/25 EXAM: CHEST ONE VIEW, FRONTAL VIEW ONLY. HISTORY: Cough right base. Vomiting. COMPARISON: CT 02/17/2025. FINDINGS: Heart size normal. Mediastinal lymphadenopathy and extensive mass- like consolidation in the left lung again noted along with left pleural effusion. The band-like opacity in the right upper lobe again noted. Calcified granulomatous changes present. There is no new opacity. No pneumothorax identified. No acute osseous abnormality is seen. IMPRESSION: Stable appearance of the chest. Lab Results Last 24 Hours: 02/22/25 05:18 WBC 13.57 H RBC 4.16 L Hgb 12.0 L Hct 39.6 L MCV 95.2 H MCH 28.8 MCHC 30.3 L RDW Coeff of Debi 14.3 Plt Count 575 H Immature Gran % (Auto) 1.0 Neut % (Auto) 88.4 H Lymph % (Auto) 3.9 L [place] % (Auto) 6.6 Eos % (Auto) 0.1 Baso % (Auto) 0.0 Neut # (Auto) 12.0 H Lymph # (Auto) 0.5 L [place] # (Auto) 0.9 Eos # (Auto) 0.0 Baso # (Auto) 0.0 Immature Gran # (Auto) 0.1 Sodium 138.2 Potassium 4.08 Chloride 96.3 L Carbon Dioxide 36.3 H Anion Gap 9.68 BUN 38.5 H Creatinine 1.31 H Estimated GFR (MDRD) 56.00 BUN/Creatinine Ratio 29.38 Glucose 97.1 Calcium 12.05 H Total Bilirubin 0.40 AST 83.6 H ALT 54.9 H Alkaline Phosphatase 95.8 Total Protein 6.71 Albumin 3.16 L Globulin 3.55 Albumin/Globulin Ratio 0.89 Procalcitonin 2.91 H Discharge Instructions Discharge Planning: Discharge Planning > 40 minutes If patient is discharged with left ventricular systolic dysfunction: no Discharged with a beta linda? [] If no, why not? [] Discharged with an shanta/arb? [] If no, why not? [] Diagnosis: Lung Cancer, Pnuemonia Diet: Low sodium, high protein Activity: as tolerated Medications: [facility] New: * Hollenberg 5/325 every 6 hours as needed for pain * Colace 100 mg daily or twice a day as needed for constipation - recommend daily use if taking norco regularly * Duoneb breathing treatments - every 6 hours * Augmentin twice a day - start tonight with evening meal (Antibiotic for pneumonia) * Doxycycline twice a day for 5 days - start tomorrow morning (Antibiotic for pneumonia) Be sure to change how you take your amiodarone on 02/24 - you will have completed the recommendations of twice a day on 02/23 and will switch to daily Sample packs of Eliquis (blood thinner to dissolve blood clots in your lungs) have been provided to you. You will take 10 mg twice a day for 5 days starting tomorrow morning. Then you will take 5 mg twice a day thereafter. Follow-up with Dr. Escobar as scheduled next week. Discharge Medications: Medications at Discharge (Home Meds & RX) albuterol sulfate 90 mcg/actuation aerosol inhaler 2 puff inhalation Q4-6H PRN shortness of breath or wheezing #8.5 grams 12/12/24 empagliflozin 10 mg tablet (Jardiance) 10 mg PO DAILY 04/13/25 trazodone 50 mg tablet 50 mg PO QHS PRN sleep 01/15/25 amiodarone 200 mg tablet 200 mg PO .COMPLEX 02/17/25 apixaban 5 mg (74 tabs) tablets in a dose pack (Eliquis DVT-PE Treat 30D Start) See Rx Instructions PO .COMPLEX #74 ea 02/17/25 magnesium oxide 400 mg (241.3 mg magnesium) tablet 400 mg PO DAILY 02/17/25 tizanidine 4 mg tablet 4 mg PO Q8H PRN muscle spasticity 02/17/25 mirtazapine 15 mg tablet 15 mg PO BEDTIME 02/20/25 docusate sodium 100 mg capsule 100 mg PO DAILY PRN constipation #30 caps 02/22/25 hydrocodone 5 mg-acetaminophen 325 mg tablet 1 tab PO Q6HR PRN pain #60 tabs 02/22/25 ipratropium 0.5 mg-albuterol 3 mg (2.5 mg base)/3 mL nebulization soln 3 ml NEB RTQ6H #180 mL 02/22/25 Discharge Plan Discharge Discharge Orders: Discharge Patient (ONCE); Ordered 02/22/25 Ordered By: KALYAN SKINNER Activity Restrictions/Additional Instructions: Diagnosis: Lung Cancer, Pnuemonia Diet: Low sodium, high protein Activity: as tolerated Medications: [facility] New: * [place] 5/325 every 6 hours as needed for pain * Colace 100 mg daily or twice a day as needed for constipation - recommend daily use if taking norco regularly * Duoneb breathing treatments - every 6 hours * Augmentin twice a day - start tonight with evening meal (Antibiotic for pneumonia) * Doxycycline twice a day for 5 days - start tomorrow morning (Antibiotic for pneumonia) Be sure to change how you take your amiodarone on 02/24 - you will have completed the recommendations of twice a day on 02/23 and will switch to daily Sample packs of Eliquis (blood thinner to dissolve blood clots in your lungs) have been provided to you. You will take 10 mg twice a day for 5 days starting tomorrow morning. Then you will take 5 mg twice a day thereafter. Follow-up with Dr. Escobar as scheduled next week. You have been referred to [facility] Pulmonology. They will be in contact with you to initiate care. If you have any questions or need to speak with them, their contact number is [phone]. You have been referred to [facility] [place]. They will be in contact with you to initiate care. If you have any questions or need to speak with them, their contact number is [phone]. Instructions: Lung Cancer (GEN), Pneumonia (GEN) Patient Disposition: HOME WITH FAMILY CARE Prescriptions: New ipratropium-albuterol 0.5 mg-3 mg(2.5 mg base)/3 mL Solution For Nebulization 3 ml NEB RTQ6H Qty: 180 0RF hydrocodone-acetaminophen 5-325 mg Tablet 1 tab PO Q6HR PRN (Reason: pain) Qty: 60 0RF docusate sodium 100 mg Capsule 100 mg PO DAILY PRN (Reason: constipation) Qty: 30 0RF amoxicillin-pot clavulanate 875-125 mg tablet 1 tab PO BID Qty: 9 0RF Rx Instructions: Take first dose tonight with meal doxycycline hyclate 100 mg capsule 100 mg PO BID Qty: 10 0RF Rx Instructions: Start tomorrow Continued albuterol sulfate 90 mcg/actuation HFA aerosol inhaler 2 puff inhalation Q4-6H PRN (Reason: shortness of breath or wheezing) Qty: 8.5 2RF Jardiance 10 mg tablet 10 mg PO DAILY trazodone 50 mg tablet 50 mg PO QHS PRN (Reason: sleep) tizanidine 4 mg tablet 4 mg PO Q8H PRN (Reason: muscle spasticity) magnesium oxide 400 mg (241.3 mg magnesium) tablet 400 mg PO DAILY amiodarone 200 mg tablet 200 mg PO .COMPLEX Rx Instructions: 200 mg orally; Take 1 tablet by mouth every 12 hours for 2 days, then 1 tablet by mouth every 12 hours for 14 days then 1 tablet by mouth daily Eliquis DVT-PE Treat 30D Start 5 mg (74 tabs) tablets,dose pack See Rx Instructions .ROUTE .COMPLEX Qty: 74 0RF Rx Instructions: orally per package directions mirtazapine 15 mg tablet 15 mg PO BEDTIME Discontinued losartan 25 mg tablet 25 mg PO DAILY albuterol sulfate 90 mcg/actuation HFA aerosol inhaler 2 inh inhalation Q4H PRN (Reason: shortness of breath or wheezing) Qty: 8.5 0RF prednisone 20 mg tablet 20 mg PO BID 5 Days Qty: 10 0RF Did you review [place] [employer] for ALL controlled substances?: No Discussed opioids are addictive and Narcan is available by prescription or from pharmacy.: No Condition: Stable Referrals: JORDAN ESCOBAR MD [Primary Care Provider] - 03/06/25 1:20 pm
[2025-02-24] MEDS ORDERED: CORDARONE PO SCH (09:00)
[2025-02-24 20:09] LABS: SPECIMEN SOURCE Urine (.); STEP PNEUMO ORGANISM ID Not indicated. (.); STREP PNEUMO AG Negative (Negative); STREP PNEUMO BODY FLUID CULT Not indicated. (.)
== END 2025-02-22 13:15 | disposition home or self-care (01) ==
LOC: ED 14:47 → MEDSURG B 14:47
PROVIDERS: ADMIT Hospitalist; ATTEND Nurse Practitioner Family

== ENCOUNTER 2025-02-24 19:38 | Inpatient (IN) ==
[2025-02-24] MEDS: SODIUM CHLORIDE 1,000 ML IV ONE (19:45)
--- NOTE | 2025-02-24 19:48 | ED.PDOC ---
General [facility] ED Provider: Dr. MELCHOR MCCLENDON DO Chief Complaint: Shortness of Air Stated Complaint: Patient is a 59-year-old male with recent diagnosis of small cell lung cancer with recent admission for pneumonia and ventricular tachycardia presenting today with chest discomfort. Patient was recommended to have AICD placement however declined. He was discharged to continue on amiodarone. Patient currently is hypotensive. He received 100 cc of fluid and route. He does have history of heart failure with an EF of approximately 45%. He was discharged with prescriptions for Augmentin and doxycycline. He should be on Eliquis 5 mg twice a day for prior PE. Patient was discharged 521. Time Seen by Provider: 02/24/25 19:47 Primary Care Provider: JORDAN QUINTANILLA MD Nursing and Triage Documentation Reviewed and Agree: Yes Opioid Naive vs. Tolerant What is Opioid Naive?: *Opioid Naive implies the patient is not already taking opioids or not chronically receiving opioids on a daily basis. *PRN dosing is not "usually" associated with tolerance. *Patients are at higher risk of over-sedation and aspiration. What is Opioid Tolerant?: *Opioid Tolerance implies less than the expected response to an opioid. *Acquired tolerance is defined by the patient taking 60mg of oral morphine daily (or equianalgesic dose of another opioid) for 1 week or more. *Often associated with chronic pain. *May take more than usual dose to achieve desired pain control. Review of Systems Review Of Systems Constitutional: Reports Weakness Ears, Nose, Mouth, Throat: Denies Nose pain Respiratory: Reports Cough and Shortness of Breath Cardiac: Denies Chest pain GI: Denies Abdominal pain : Denies Dysuria Musculoskeletal: Denies Back pain Skin: Denies Bruising [facility] Medical History (Updated 02/24/25 @ 23:38 by MELCHOR MCCLENDON DO) Mass of left lung R91.8 - Other nonspecific abnormal finding of lung field (ICD-10) COPD (chronic obstructive pulmonary disease) J44.9 - Chronic obstructive pulmonary disease, unspecified (ICD-10) Pulmonary embolism I26.99 - Other pulmonary embolism without acute cor pulmonale (ICD-10) Shortness of breath R06.02 - Shortness of breath (ICD-10) Consolidation of left lower lobe of lung J18.1 - Lobar pneumonia, unspecified organism (ICD-10) Malignant pleural effusion J91.0 - Malignant pleural effusion (ICD-10) Lung cancer Small cell carcinoma of hilum of left lung C34.90 - Malignant neoplasm of unspecified part of unspecified bronchus or lung (ICD-10) Pulmonary embolism I26.99 - Other pulmonary embolism without acute cor pulmonale (ICD-10) Tobacco use (01/22/17) Z72.0 - Tobacco use (ICD-10) Heart failure with reduced ejection fraction due to cardiomyopathy I50.20 - Unspecified systolic (congestive) heart failure (ICD-10) I42.9 - Cardiomyopathy, unspecified (ICD-10) Ventricular tachycardia I47.20 - Ventricular tachycardia, unspecified (ICD-10) Family History Mother Cardiac disease Lung cancer FATHER Cardiac disease [place] Surgical History History of dental surgery Z92.89 - Personal history of other medical treatment (ICD-10) Physical Exam Physical Exam Appearance: Reports Ill-appearing and Cachectic Ill-appearing: Severe Eyes: Reports Conjunctiva clear ENT: Reports Nose normal and Dry mucosa Respiratory: Reports Airway patent and Breath sounds clear Cardiovascular: Reports Tachycardia GI/: Reports Soft and Nontender Musculoskeletal: Reports No calf tenderness Skin: Reports Dry Neurological: Reports Alert and Other (Soft whisper voice) Interpretation EKG Interpretation EKG Interpretation By: ED Physician Time of EKG #1: 19:50 Rate: Tachy [place]: Right Interpretation: Sinus tachycardia QTc 418 incomplete right bundle branch block Physician Progress Note Physician Progress Note: 59-year-old male presenting for history of present illness above. Patient has been hypotensive received 1.5 L of fluid. Patient does have history of CHF with elevated BNP here today. EKG does not show ischemic change. I was concern for extension of his PE. Therefore CTA was done. This did not show extension of the clot. He does have a small effusion however not significant enough to be drained at this time. Jose Daniel discussion with patient and patient's . At this time I do feel patient is dying and he is not a candidate for systemic chemotherapy or immunotherapy. I did state to him that if he enrolled in hospice in order to improve that he could be reevaluated at this time for treatment. Patient understanding of his prognosis and will speak with hospice tomorrow. DNR DNI no artificial nutrition MOST form completed. CODE STATUS updated. I did speak with Jay for hospitalist service for observation overnight with hospice consult in the morning. Course Course 02/24/25 19:54 02/24/25 19:54 Orders, Labs, Meds: Lab Review 02/24/25 02/24/25 02/24/25 19:54 20:01 21:38 WBC 14.19 H RBC 3.99 L Hgb 11.7 L Hct 38.3 L MCV 96.0 H MCH 29.3 MCHC 30.5 L RDW Coeff of Debi 14.9 H Plt Count 514 H Immature Gran % (Auto) 1.7 Neut % (Auto) 85.4 H Lymph % (Auto) 6.1 L [place] % (Auto) 6.1 Eos % (Auto) 0.5 Baso % (Auto) 0.2 Neut # (Auto) 12.1 H Lymph # (Auto) 0.9 [place] # (Auto) 0.9 Eos # (Auto) 0.1 Baso # (Auto) 0.0 Immature Gran # (Auto) 0.2 PT 11.0 INR 1.06 APTT 27.5 Sodium 140.9 Potassium 4.21 Chloride 102.7 Carbon Dioxide 31.0 H Anion Gap 11.41 BUN 53.7 H Creatinine 1.19 H Estimated GFR (MDRD) 62.00 BUN/Creatinine Ratio 45.12 Glucose 136.7 H Lactic Acid 2.73 H Calcium 11.79 H Total Bilirubin 0.50 AST 88.7 H ALT 28.2 Alkaline Phosphatase 80.2 Troponin I 0.172 H NT-Pro-B Natriuret Pep 8720 H Total Protein 6.25 L Albumin 2.88 L Globulin 3.37 Albumin/Globulin Ratio 0.85 Procalcitonin 2.97 H SARS CoV-2 RNA Rapid [place] Negative Orders Category Date Time Status ADMIT OBSERVATION [PLACE PATIENT OBSERVATION] .TO ADMISSION 02/24/25 21:56 Active MEDSURG (MONITORED BED) EKG-(ED ONLY) Stat CARDIO 02/24/25 19:47 Completed OXYGEN Routine CARDIO 02/24/25 22:11 Ordered ACTIVITY .Complete BR CARE 02/24/25 22:11 Active HOSPICE CONSULTATION ONCE CARE 02/24/25 22:14 Active INTAKE & OUTPUT Q8HR CARE 02/24/25 22:11 Active NPO REMINDER: IMAGING ONCE CARE 02/24/25 20:38 Completed TELEMETRY MONITORING TELE CARE 02/24/25 21:57 Active VITAL SIGNS Q12HR CARE 02/24/25 22:11 Active REGULAR DIET DIETARY 02/25/25 Breakfast Ordered ED APPLY O2 .ONCE EMERGENCY 02/24/25 19:47 Active ED SOW FARM MANAGER APPLIED .ONCE EMERGENCY 02/24/25 19:47 Active ED CODE STATUS .ONCE EMERGENCY 02/24/25 20:03 Active CBC W/ AUTO DIFF Stat LAB 02/24/25 19:54 Completed COMPREHENSIVE METABOLIC PANEL Stat LAB 02/24/25 19:54 Completed COVID [SARS COV-2 RNA RAPID [place]] Stat LAB 02/24/25 21:38 Completed LACTIC ACID Stat LAB 02/24/25 19:54 Completed NT-PROBNP(ED) Stat LAB 02/24/25 19:54 Completed PROCALCITONIN Stat LAB 02/24/25 19:54 Completed PT [PT WITH INR] Stat LAB 02/24/25 20:01 Completed PTT [PARTIAL THROMBOPLASTIN TIME] Stat LAB 02/24/25 20:01 Completed TROPONIN I Stat LAB 02/24/25 19:54 Completed Iohexol [Omnipaque 350 mg/ml 100Ml] Meds 02/24/25 20:47 Discontinued 100 ml IVP ONCE ONE Lorazepam [Ativan] Meds 02/24/25 22:11 Active 1 mg IVP Q4H PRN Morphine Sulfate [Morphine 2 mg/ml Syringe] Meds 02/24/25 22:11 Active 2 mg IVP Q4H PRN Ondansetron HCl/Pf [Zofran Sdv] Meds 02/24/25 22:11 Active 4 mg IVP Q6H PRN Sodium Chloride 0.9% [Sodium Chloride] 1,000 ml Meds 02/24/25 19:48 Discontinued IV BOLUS Tizanidine HCl [Zanaflex] Meds 02/24/25 22:14 Active 4 mg PO Q8H PRN RESUSCITATION STATUS Routine OTHERS 02/24/25 20:04 Ordered CHEST, 1V AP ONLY Stat RADS 02/24/25 19:53 Completed CTA CHEST PE PROTOCOL Stat RADS 02/24/25 20:38 Completed Medications Generic Name Dose Route Start Last Admin Trade Name Freq PRN Reason Stop Dose Admin Lorazepam 1 mg 02/24/25 22:11 Lorazepam Inj 2 Mg/Ml Vial IVP Q4H PRN Agitation Morphine Sulfate 2 mg 02/24/25 22:11 Morphine Sulfate 2 Mg/Ml Syringe IVP Q4H PRN MODERATE PAIN Ondansetron HCl 4 mg 02/24/25 22:11 Ondansetron Hcl/Pf 4 Mg/2 Ml Sdv IVP Q6H PRN Nausea / Vomiting Tizanidine HCl 4 mg 02/24/25 22:14 Tizanidine Hcl 4 Mg Tablet PO Q8H PRN Spasms Discontinued Medications Generic Name Dose Route Start Last Admin Trade Name Freq PRN Reason Stop Dose Admin Sodium Chloride 1,000 mls @ 1,000 mls/hr 02/24/25 19:48 02/24/25 22:10 Sodium Chloride IV 02/24/25 20:47 Infused BOLUS ONE Infusion Iohexol 100 ml 02/24/25 20:47 02/24/25 20:48 Iohexol 350 Mg/Ml 100ml IVP 02/24/25 20:48 100 ml ONCE ONE Administration 1. The appearance of the pulmonary arteries is similar to that previously seen with no enhancement of the segmental branches to the left upper and lower lobes possibly related to pulmonary emboli. 2. There is a large soft tissue mass which occupies the majority of the left lung and is seen extending to obscure the mid mediastinum and occlude the left sided bronchi. This is unchanged. There is bulky mediastinal lymphadenopathy. 3. The aerated portion of the upper left lung and the right lung demonstrate severe emphysema and scarring. There is a small to moderate left pleural effusion. Vital Signs: Temp Pulse Resp BP Pulse Ox O2 Flow Rate 02/24/25 20:05 2 02/24/25 19:47 97.2 F L 144 H 26 H 106/72 100 ALEXIS Risk Score ALEXIS Risk Score: Risk Score Odds of by 30D 0 0.1 (0.1-0.2) 1 0.3 (0.2-0.3) 2 0.4 (0.3-0.5) 3 0.7 (0.6-0.9) 4 1.2 (1.0-1.5) 5 2.2 (1.9-2.6) 6 3.0 (2.5-3.6) 7 4.8 (3.8-6.1) Discharge Plan Discharge Patient Disposition: PLACED OBSERVATION Discharge Problem: Lung cancer, Pulmonary emboli, Adult failure to thrive, Hypotension Did you review [place] DINKEY OPERATOR for ALL controlled substances?: Not Applicable ED Provider: MELCHOR MCCLENDON Condition: Serious
[2025-02-24 20:05] LABS: BASOPHILS % (AUTO) 0.2 % (0.0-3.0); EOSINOPHILS # (AUTO) 0.1 K/ul (0.0-0.7); EOSINOPHILS % (AUTO) 0.5 % (0.0-7.0); HEMATOCRIT 38.3 % (42.0-52.0); HEMOGLOBIN 11.7 g/dl (14.0-18.0); IMMATURE GRANULOCYTE # (AUTO) 0.2 (0.0-1.0); IMMATURE GRANULOCYTE % (AUTO) 1.7 % (0.0-5.0); LYMPHOCYTES # (AUTO) 0.9 K/uL (0.60-3.4); LYMPHOCYTES % (AUTO) 6.1 (10.0-50.0); MEAN CORPUSCULAR HEMOGLOBIN 29.3 pg (27.0-31.0); MEAN CORPUSCULAR HGB CONC 30.5 (31.8-35.4); MONOCYTES # (AUTO) 0.9 K/uL (0.4-2.0); MONOCYTES % (AUTO) 6.1 (0-10); NEUTROPHILS # (AUTO) 12.1 K/ul (2.0-6.9); NEUTROPHILS % (AUTO) 85.4 % (42.2-75.2); PLATELET COUNT 514 10^3/uL (140-440); RDW COEFFICIENT OF VARIATION 14.9 % (11.6-14.8); RED BLOOD COUNT 3.99 10^6/ul (4.70-6.10); WHITE BLOOD COUNT 14.19 K/ul (4.2-10.2)
[2025-02-24 20:17] LABS: ALANINE AMINOTRANSFERASE 28.2 U/L (0-50); ALBUMIN 2.88 g/dL (3.5-5.0); ALKALINE PHOSPHATASE 80.2 U/L (56-119); ASPARTATE AMINO TRANSFERASE 88.7 U/L (17-59); BILIRUBIN,TOTAL 0.5 mg/dL (0.2-1.3); BLOOD UREA NITROGEN 53.7 mg/dL (9-20); CALCIUM 11.79 mg/dL (8.4-10.2); CHLORIDE 102.7 mmol/L (98-107); CREATININE 1.19 mg/dL (0.60-1.10); GLUCOSE 136.7 mg/dL (74-106); POTASSIUM 4.21 mmol/L (3.5-5.1); SODIUM 140.9 mmol/L (134.5-145); TOTAL PROTEIN 6.25 g/dL (6.3-8.2)
[2025-02-24 20:19] LABS: PARTIAL THROMBOPLASTIN TIME 27.5 SEC (23.9-40.0)
[2025-02-24 20:28] LABS: TROPONIN I 0.172 ng/ml (0.0000-0.120)
[2025-02-24] MEDS: OMNIPAQUE 350 MG/ML 100ML IVP ONE (20:48)
--- NOTE | 2025-02-24 20:50 | DI ---
EXAM: CHEST RADIOGRAPH (1 VIEW) TECHNIQUE: Frontal Chest Radiograph. HISTORY: Cancer, tachycardia COMPARISON: 02/20/2025. FINDINGS: Lines, Tubes, Devices: None Lungs and Pleura: Large left pleural effusion with adjacent consolidation. This has increased since the previous chest radiograph. Right lung densities, possibly granulomas. Cardiac silhouette: Partially obscured. Bones: No acute abnormality. IMPRESSION: Large left pleural effusion with adjacent consolidation, increased since the previous chest radiograp h. Right lung densities, possibly granulomas. Attention at follow-up.
--- NOTE | 2025-02-24 21:47 | CT ---
EXAM: CT ANGIOGRAPHY CHEST (PE PROTOCOL) HISTORY: Hypoxia, known PE TECHNIQUE: CTA chest with intravenous contrast. PE protocol. Multiplanar images were provided with MIP images and 3-D reconstructions. COMPARISON: 02/17/2005 FINDINGS: The appearance of the pulmonary arteries is similar to that previously seen with no enhanc ement of the segmental branches to the left upper and lower lobes possibly related to pulmonary embol i. There is a large soft tissue mass which occupies the majority of the left lung and is seen extend ing to obscure the mid mediastinum and occlude the left sided bronchi. This is unchanged. There is b ulky mediastinal lymphadenopathy. The aerated portion of the upper left lung and the right lung demo nstrate severe emphysema and scarring. No pneumothorax. There is a small to moderate left pleural e ffusion. There are posterior left sided rib deformities similar to that previously seen which may be related to prior trauma. Heart size remains normal. Normal thoracic aortic caliber with moderate at herosclerotic disease. - - - - - IMPRESSION: 1. The appearance of the pulmonary arteries is similar to that previously seen with no enhancement o f the segmental branches to the left upper and lower lobes possibly related to pulmonary emboli. 2. There is a large soft tissue mass which occupies the majority of the left lung and is seen extend ing to obscure the mid mediastinum and occlude the left sided bronchi. This is unchanged. There is b ulky mediastinal lymphadenopathy. 3. The aerated portion of the upper left lung and the right lung demonstrate severe emphysema and sc arring. There is a small to moderate left pleural effusion. All CT scans are performed using dose optimization techniques as appropriate to the performed exam an d include at least one of the following: Automated exposure control, adjustment of the mA and/or kV according t o size, and the use of iterative reconstruction technique.
[2025-02-24] MEDS ORDERED: ZOFRAN SDV IVP PRN (22:11)
[2025-02-24] MEDS ORDERED: ZANAFLEX PO PRN (22:14)
[2025-02-24 23:03] VITALS: BMI 17.7
[2025-02-24 23:06] LABS: SARS COV-2 RNA RAPID NAAT NEGATIVE (NEGATIVE)
--- NOTE | 2025-02-25 09:53 | PCM ---
Date of Service Date Seen by Provider: 02/25/25 Time Seen by Provider: 09:45 Admit Day/Time Admission Date: 02/25/25 Reason for Admission Chief Complaint: SOB/HEART ISSUES Hospital Provider Hospital Provider: TOMAS ENRIQUEZ, [facility] [place] Primary Care Physician Primary Care Physician: JORDAN ESCOBAR MD History of Present Illness History of Present Illness: 59 yo male with recent diagnosis of lung mass, ventricular tachycardia, systolic HFrEF, and COPD presented to the ER for shortness of breath. 02/02/25: Patient collapsed at home. EMS found patient to be in vtach. He was given adenosine, then cardioverted, with return to sinus rhythm. Admitted to ICU where he was initially hypotensive. Placed on amiodarone drip per Cardiology. Declined LifeVest and AICD placement. Cardiac MRI requested. Patient then became DNR and declined additional aggressive management. While awaiting hospice arrangements on 02/03/25, patient decided he would like to undergo further testing. Reassessment by cardiology continued oral amiodarone, daily EKGs and no recurrence of arrhythmias. Patient was found to have a left lower lobe lung mass likely malignant with associated left pleural effusion, and mediastinal lymphadenopathy. Repeat echo showed decreased systolic function. EF 41-45%. Patient had noticed hypercalcemia likely associated with malignant neoplasm. On 02/08/25, he underwent a fiberoptic bronchoscopy, endobronchial ultrasound, and transbronchial needle aspiration by Dr. Basilio of Pulmonology. 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 Recommended follow-up with Forging Operator regarding systolic heart failure upon discharge. Heart cath completed by [facility] in January with no CAD prior to admission. A referral was made to hem/onc and recommend auto research engineer to follow biopsy results. Patient was also seen in this ER on 02/17. CT scan at that time showed segmental PE as well as poss consolidation and discharged home with eliquis (in which he was unable to fill and afford), cefepime, azith, and steroids. He returned to [facility] ER on 02/19/25 and was told to continue his antibiotics, pick pulling machine tender his Rx for eliquis, and given a dose of lasix. Admitted to this facility on 02/20 for superimposed pneumonia on lung cancer. He was treated with zosyn, nebs, and steroids. Procal remained elevated and suspect this is due to malignant lung cancer. Patient had initially been referred to [facility]ology for lung cancer. However, [place] there thus patient is unable to receive care due to cost. New referrals sent to [facility] hem/onc and pulmonology. Started on norco for pain control due to continued complaints of back pain during stay. Of note, patient was noted to have PE during CTA completed on 02/17. Sent home with aury but never picked up due to cost. Has not completed high dose course for PE. Samples provided from PCP office. Has received lovenox in house due to making arrangements for discharge anticoagulation. He is to complete 5 days of 10 mg twice a day then 5 mg twice a day thereafter. D/c with rx for duonebs, colace, norco, augmentin, and course of doxycyline. Patient returned to the ER last night for weakness, sob, and unresponsiveness. at bedside providing history. States that he has been taking his medications as prescribed but has not ate or drank much the last 2 days. Last night patient told her he needed to lay down, was in and out of consciousness and she called EMS. Hypotensive when EMS arrived. Lab findings basically unchanged from last date of stay with worsening BNP. ER provider discussed plan of care with patient and at bedside and determined that hospice is the best option at this time. POLST form signed DNR. Admitted to med/surg observation for establishment of hospice. Case Discussed With Case Discussed With: Patient's case was discussed with the ER Physicians, Dr. Pompa. [facility] Medical History Mass of left lung R91.8 - Other nonspecific abnormal finding of lung field (ICD-10) COPD (chronic obstructive pulmonary disease) J44.9 - Chronic obstructive pulmonary disease, unspecified (ICD-10) Pulmonary embolism I26.99 - Other pulmonary embolism without acute cor pulmonale (ICD-10) Shortness of breath R06.02 - Shortness of breath (ICD-10) Tobacco use (01/22/17) Z72.0 - Tobacco use (ICD-10) Heart failure with reduced ejection fraction due to cardiomyopathy I50.20 - Unspecified systolic (congestive) heart failure (ICD-10) I42.9 - Cardiomyopathy, unspecified (ICD-10) Ventricular tachycardia I47.20 - Ventricular tachycardia, unspecified (ICD-10) Surgical History History of dental surgery Z92.89 - Personal history of other medical treatment (ICD-10) Family History Mother Cardiac disease Lung cancer FATHER Cardiac disease CT Allergies Allergies Allergy/AdvReac Type Severity Reaction Status Date / Time codeine Allergy Intermediate itching Verified 02/20/25 14:58 Current Medications Home Medications Lorazepam (Lorazepam Inj 2 Mg/Ml Vial) 1 mg IVP Q4H PRN PRN Reason: Agitation Morphine Sulfate (Morphine Sulfate 2 Mg/Ml Syringe) 2 mg IVP Q4H PRN PRN Reason: MODERATE PAIN Last Admin: 02/25/25 10:19 Dose: 2 mg Ondansetron HCl (Ondansetron Hcl/Pf 4 Mg/2 Ml Sdv) 4 mg IVP Q6H PRN PRN Reason: Nausea / Vomiting Tizanidine HCl (Tizanidine Hcl 4 Mg Tablet) 4 mg PO Q8H PRN PRN Reason: Spasms albuterol sulfate 90 mcg/actuation aerosol inhaler 2 puff inhalation Q4-6H PRN shortness of breath or wheezing #8.5 grams 12/12/24 [Rx Confirmed 02/24/25] empagliflozin 10 mg tablet (Jardiance) 10 mg PO DAILY 01/15/25 [History Confirmed 02/24/25] trazodone 50 mg tablet 50 mg PO QHS PRN sleep 01/15/25 [History Confirmed 02/24/25] amiodarone 200 mg tablet 200 mg PO .COMPLEX 02/17/25 [History Confirmed 02/24/25] apixaban 5 mg (74 tabs) tablets in a dose pack (Eliquis DVT-PE Treat 30D Start) See Rx Instructions PO .COMPLEX #74 ea 02/17/25 [Rx Confirmed 02/24/25] magnesium oxide 400 mg (241.3 mg magnesium) tablet 400 mg PO DAILY 02/17/25 [History Confirmed 02/24/25] tizanidine 4 mg tablet 4 mg PO Q8H PRN muscle spasticity 02/17/25 [History Confirmed 02/24/25] mirtazapine 15 mg tablet 15 mg PO BEDTIME 02/20/25 [History Confirmed 02/24/25] amoxicillin 875 mg-potassium clavulanate 125 mg tablet 1 tab PO BID #9 tabs 02/22/25 [Rx Confirmed 02/24/25] docusate sodium 100 mg capsule 100 mg PO DAILY PRN constipation #30 caps 02/22/25 [Rx Confirmed 02/24/25] doxycycline hyclate 100 mg capsule 100 mg PO BID #10 caps 02/22/25 [Rx Confirmed 02/24/25] hydrocodone 5 mg-acetaminophen 325 mg tablet 1 tab PO Q6HR PRN pain #60 tabs 02/22/25 [Rx Confirmed 02/24/25] ipratropium 0.5 mg-albuterol 3 mg (2.5 mg base)/3 mL nebulization soln 3 ml NEB RTQ6H #180 mL 02/22/25 [Rx Confirmed 02/24/25] diltiazem HCl 120 mg capsule,extended release 24 hr 120 mg PO DAILY 02/24/25 [History Confirmed 02/24/25] furosemide 20 mg tablet 20 mg PO DAILY 02/24/25 [History Confirmed 02/24/25] losartan 25 mg tablet 25 mg PO DAILY 02/24/25 [History Confirmed 02/24/25] metoprolol succinate 25 mg tablet,extended release 24 hr 25 mg PO DAILY 02/24/25 [History Confirmed 02/24/25] potassium chloride 10 mEq tablet,extended release 10 meq PO DAILY 02/24/25 [History Confirmed 02/24/25] prednisone 20 mg tablet 20 mg PO 2XD 02/24/25 [History Confirmed 02/24/25] spironolactone 25 mg tablet 25 mg PO DAILY 02/24/25 [History Confirmed 02/24/25] tramadol 50 mg tablet 50 mg PO Q12HR 02/24/25 [History Confirmed 02/24/25] Opioid Naive vs. Tolerant Does Patient Take Opioids?: Yes Is Patient Opioid Naive?: No What is Opioid Naive?: *Opioid Naive implies the patient is not already taking opioids or not chronically receiving opioids on a daily basis. *PRN dosing is not "usually" associated with tolerance. *Patients are at higher risk of over-sedation and aspiration. Is Patient Opioid Tolerant?: No What is Opioid Tolerant?: *Opioid Tolerance implies less than the expected response to an opioid. *Acquired tolerance is defined by the patient taking 60mg of oral morphine daily (or equianalgesic dose of another opioid) for 1 week or more. *Often associated with chronic pain. *May take more than usual dose to achieve desired pain control. Review of Systems Constitutional: Reports Recent Weight Loss (40 lbs in past month), Weakness and Loss of appetite Head: Reports Normocephalic Eyes: Reports No symptoms Ears: Reports No symptoms Nose: Reports No symptoms Mouth: Reports No symptoms Throat: Reports No symptoms Cardiovascular: Reports No symptoms Respiratory: Reports Shortness of air Gastrointestinal: Reports No symptoms Genitourinary: Reports No Symptoms Musculoskeletal: Reports No symptoms Endocrine: Reports No symptoms Hematology: Reports No symptoms Immunology: Reports No symptoms Neurological: Reports Loss of Conciousness Psychiatric: Reports No symptoms Physical examination Most Recent Vital Signs: Most Recent Vital Signs Temperature 97.2 F L 02/25/25 05:35 Temperature Source Temporal Artery Scan 02/25/25 05:35 Temperature Source Infrared 02/24/25 19:47 Pulse Rate 142 H 02/25/25 05:35 Respiratory Rate 26 H 02/25/25 05:35 Blood Pressure 88/63 L 02/25/25 05:35 Blood Pressure Mean 71 02/25/25 05:35 Blood Pressure Left Arm 88/67 02/24/25 22:44 Blood Pressure Location Left Arm 02/25/25 05:35 Blood Pressure Position Supine 02/25/25 05:35 O2 Sat by Pulse Oximetry 97 02/25/25 05:35 Oxygen Delivery Method Nasal Cannula 02/25/25 07:00 Oxygen Flow Rate 2 02/25/25 05:35 Height 5 ft 11 in 02/24/25 22:44 Weight 57.8 kg 02/24/25 22:44 Telemetry Type Remote Telemetry 02/25/25 07:00 Telemetry Monitoring Continues 02/25/25 07:00 Telemetry Heart Rate 143 H 02/25/25 07:00 Telemetry SPO2 95 02/25/25 07:00 EKG MS Interval 0.14 02/25/25 07:00 EKG QRS Interval 0.08 02/25/25 07:[address] 02/25/25 07:00 Appearance: Positive No Apparent Distress, Alert and Oriented x3, Ill-Appearing, Thin and Cachectic Skin: Positive Warm and Good Turgor HEENT: Positive Normocephalic and PERRLA Neck: Positive Supple and Midline Trachea Chest/Lungs: Positive Other (no breath sounds to L lung, clear breath sounds to R lung charles) Heart: Positive RRR, Pulses Normal and Tachycardia; Negative Irregular Rhythm GI/: Positive Soft, Nontender, Bowel Sounds Normal and No Distention Musculoskeletal: Positive Not Examined Extremities: Positive Atrophy, Intact Peripheral Pulses and Stable Joints Without Laxity Neurological: Positive Sensation Intact, Motor intact (significant weakness), Reflexes Intact, Alert and Oriented Labs This Visit Labs This Visit: Labs This Visit 02/24/25 02/24/25 02/24/25 19:54 20:01 21:38 WBC 14.19 H RBC 3.99 L Hgb 11.7 L Hct 38.3 L MCV 96.0 H MCH 29.3 MCHC 30.5 L RDW Coeff of Debi 14.9 H Plt Count 514 H Immature Gran % (Auto) 1.7 Neut % (Auto) 85.4 H Lymph % (Auto) 6.1 L Ingham % (Auto) 6.1 Eos % (Auto) 0.5 Baso % (Auto) 0.2 Neut # (Auto) 12.1 H Lymph # (Auto) 0.9 [place]ham # (Auto) 0.9 Eos # (Auto) 0.1 Baso # (Auto) 0.0 Immature Gran # (Auto) 0.2 PT 11.0 INR 1.06 APTT 27.5 Sodium 140.9 Potassium 4.21 Chloride 102.7 Carbon Dioxide 31.0 H Anion Gap 11.41 BUN 53.7 H Creatinine 1.19 H Estimated GFR (MDRD) 62.00 BUN/Creatinine Ratio 45.12 Glucose 136.7 H Lactic Acid 2.73 H Calcium 11.79 H Total Bilirubin 0.50 AST 88.7 H ALT 28.2 Alkaline Phosphatase 80.2 Troponin I 0.172 H NT-Pro-B Natriuret Pep 8720 H Total Protein 6.25 L Albumin 2.88 L Globulin 3.37 Albumin/Globulin Ratio 0.85 Procalcitonin 2.97 H SARS CoV-2 RNA Rapid [facility] Negative Imaging Imaging: EXAM: CT ANGIOGRAPHY CHEST (PE PROTOCOL) FINDINGS: The appearance of the pulmonary arteries is similar to that previously seen with no enhancement of the segmental branches to the left upper and lower lobes possibly related to pulmonary emboli. There is a large soft tissue mass which occupies the majority of the left lung and is seen extending to obscure the mid mediastinum and occlude the left sided bronchi. This is unchanged. There is bulky mediastinal lymphadenopathy. The aerated portion of the upper left lung and the right lung demonstrate severe emphysema and sc arring. No pneumothorax. There is a small to moderate left pleural effusion. There are posterior left sided rib deformities similar to that previously seen which may be related to prior trauma. Heart size remains normal. Normal thoracic aortic caliber with moderate atherosclerotic disease. - - - - - IMPRESSION: 1. The appearance of the pulmonary arteries is similar to that previously seen with no enhancement of the segmental branches to the left upper and lower lobes possibly related to pulmonary emboli. 2. There is a large soft tissue mass which occupies the majority of the left lung and is seen extending to obscure the mid mediastinum and occlude the left sided bronchi. This is unchanged. There is bulky mediastinal lymphadenopathy. 3. The aerated portion of the upper left lung and the right lung demonstrate severe emphysema and scarring. There is a small to moderate left pleural effusion. Review Statement Review Statement: I have independently reviewed and interpreted the labs/EKGs/imaging that were ordered by the ER provider. I have reviewed all outside records that are available currently in our EMR including imaging/notes/labs from previous visits. Plan Plan: 1. Comfort Measures - morphine 2 mg Q4H prn, ativan 1 mg Q4H prn, turn q2, diet as patient tolerates Patient requires mod-max assistance with ADLs, has lost 40 lbs in 1 month, declines further life-prolonging treatment, has known lung mass to the L main bronchus, back pain has progressively worsened and is unbearable per patient, has refractory pleural effusions present on CTA, and has continued dyspnea due to nature of cancer. This patient would highly benefit from hospice services at this time. [facility] contacted at [phone]. RN coming to speak with patient and family to develop plan of care. Likely will have to admit patient until Thursday due to lack of resources due to holiday weekend. DVT Prophylaxis: None, comfort measures only Time Spent: Greater than 80 minutes spent with patient, 50% of the time spent with this patient was devoted to counseling and coordination of care. [facility] minutes spent discussing advance care planning. Disposition: Admit to: Med/Surg Observation - will admit to inpatient if patient will require stay in this facility >48 hours once development of plan of care with hospice. DNR Discussed Plan of Care with Dr. Robert Escobar. Medications Medication Orders: Medications Ordered Category Date Time Status Lorazepam [Ativan] Meds 02/24/25 22:11 Active 1 mg IVP Q4H PRN Morphine Sulfate [Morphine 2 mg/ml Syringe] Meds 02/24/25 22:11 Active 2 mg IVP Q4H PRN Ondansetron HCl/Pf [Zofran Sdv] Meds 02/24/25 22:11 Active 4 mg IVP Q6H PRN Tizanidine HCl [Zanaflex] Meds 02/24/25 22:14 Active 4 mg PO Q8H PRN Additional Comments Additional Comments: Balbina from [facility] evaluated patient. At this time, patient does not meet GIP criteria. Unable to accommodate hospice arrangements until Thursday due to holiday weekend. Will follow-up daily to see if condition changes. Initially, not agreeable and thought patient had a chance of recovering with treatment. This provider discussed the extent of mass and prognosis. Discussed unable to determine if treatment is an option at this facility and would need to see oncology. feels patient would not make it to that point and at this time his body has no ability to come back from this due to extensive weight loss and refusal to eat and drink. States he is sleeping mainly at home and that is all. Determined hospice is best course at this time and is agreeable.
[2025-02-25] MEDS: MORPHINE 2 MG/ML SYRINGE IVP PRN (10:19)
--- NOTE | 2025-02-26 11:26 | PCM.PROG ---
Date/Time Seen Date Seen by Provider: 02/26/25 Time Seen by Provider: 09:00 Provider Provider[facility]AS ENRIQUEZ[facility] Chief Complaint Chief Complaint: SOB/HEART ISSUES Subjective Subjective: Resting comfortably. States morphine is controlling pain well at this time. Refusing turns per RN. Objective Appearance: Positive No Apparent Distress and Ill-Appearing Chest/Lungs: Positive Other (no breath sounds to L lung, clear breath sounds to R lung charles); Negative Rales, Rhonci or Wheezes Vital Signs Vital Signs: Vital Signs: Last 24 Hours 02/25/25 12:00 02/25/25 13:00 02/25/25 13:00 Temperature Temperature Source Pulse Rate Pulse Rate [Apical] Respiratory Rate Blood Pressure Blood Pressure Mean Blood Pressure Location Blood Pressure Position O2 Sat by Pulse Oximetry Oxygen Delivery Method Nasal Cannula Nasal Cannula Oxygen Flow Rate Telemetry Type Remote Telemetry Telemetry Monitoring Continues Telemetry Heart Rate 142 H Telemetry SPO2 94 EKG NE Interval 0.20 EKG QRS Interval 0.[address] 02/25/25 14:00 02/25/25 14:00 02/25/25 14:00 Temperature 97.6 F Temperature Source Temporal Artery Scan Pulse Rate 103 H Pulse Rate [Apical] Respiratory Rate 18 Blood Pressure 85/66 L Blood Pressure Mean 72 Blood Pressure Location Left Arm Blood Pressure Position O2 Sat by Pulse Oximetry 96 98 Oxygen Delivery Method Nasal Cannula Nasal Cannula Nasal Cannula Oxygen Flow Rate 2 2 Telemetry Type Telemetry Monitoring Telemetry Heart Rate Telemetry SPO2 EKG NE Interval EKG QRS Interval Telemetry Strip Reading 02/25/25 15:00 02/25/25 16:00 02/25/25 16:41 Temperature Temperature Source Pulse Rate Pulse Rate [Apical] Respiratory Rate Blood Pressure Blood Pressure Mean Blood Pressure Location Blood Pressure Position O2 Sat by Pulse Oximetry Oxygen Delivery Method Nasal Cannula Nasal Cannula Nasal Cannula Oxygen Flow Rate Telemetry Type Telemetry Monitoring Telemetry Heart Rate Telemetry SPO2 EKG NE Interval EKG QRS Interval Telemetry Strip Reading 02/25/25 18:00 02/25/25 18:00 02/25/25 19:00 Temperature 96.6 F L Temperature Source Temporal Artery Scan Pulse Rate 72 Pulse Rate [Apical] Respiratory Rate 18 Blood Pressure 92/59 L Blood Pressure Mean 70 Blood Pressure Location Left Arm Blood Pressure Position Supine O2 Sat by Pulse Oximetry 98 Oxygen Delivery Method Nasal Cannula Nasal Cannula Nasal Cannula Oxygen Flow Rate 2 Telemetry Type Telemetry Monitoring Telemetry Heart Rate Telemetry SPO2 EKG NE Interval EKG QRS Interval Telemetry Strip Reading 02/25/25 19:00 02/25/25 19:59 02/25/25 20:00 Temperature Temperature Source Pulse Rate Pulse Rate [Apical] 142 H Respiratory Rate 22 H Blood Pressure Blood Pressure Mean Blood Pressure Location Blood Pressure Position O2 Sat by Pulse Oximetry Oxygen Delivery Method Nasal Cannula Nasal Cannula Oxygen Flow Rate 2 Telemetry Type Remote Telemetry Telemetry Monitoring Continues Telemetry Heart Rate 141 H Telemetry SPO2 99 EKG NE Interval 0.18 EKG QRS Interval 0.[address] 02/25/25 20:00 02/25/25 21:00 02/25/25 21:07 Temperature 97.1 F L Temperature Source Temporal Artery Scan Pulse Rate 140 H Pulse Rate [Apical] Respiratory Rate 23 H Blood Pressure 96/52 L Blood Pressure Mean 66 Blood Pressure Location Left Arm Blood Pressure Position Supine O2 Sat by Pulse Oximetry 98 99 Oxygen Delivery Method Nasal Cannula Nasal Cannula Nasal Cannula Oxygen Flow Rate 2 2 Telemetry Type Telemetry Monitoring Telemetry Heart Rate Telemetry SPO2 EKG NE Interval EKG QRS Interval Telemetry Strip Reading 02/25/25 22:00 02/25/25 23:00 02/26/25 00:00 Temperature Temperature Source Pulse Rate Pulse Rate [Apical] Respiratory Rate Blood Pressure Blood Pressure Mean Blood Pressure Location Blood Pressure Position O2 Sat by Pulse Oximetry Oxygen Delivery Method Nasal Cannula Nasal Cannula Nasal Cannula Oxygen Flow Rate Telemetry Type Telemetry Monitoring Telemetry Heart Rate Telemetry SPO2 EKG NE Interval EKG QRS Interval Telemetry Strip Reading 02/26/25 01:00 02/26/25 01:00 02/26/25 02:00 Temperature Temperature Source Pulse Rate Pulse Rate [Apical] Respiratory Rate Blood Pressure Blood Pressure Mean Blood Pressure Location Blood Pressure Position O2 Sat by Pulse Oximetry Oxygen Delivery Method Nasal Cannula Nasal Cannula Oxygen Flow Rate Telemetry Type Remote Telemetry Telemetry Monitoring Continues Telemetry Heart Rate 141 H Telemetry SPO2 96 EKG NE Interval 0.17 EKG QRS Interval 0.[address] 02/26/25 02:00 02/26/25 03:00 02/26/25 04:00 Temperature Temperature Source Pulse Rate 136 H Pulse Rate [Apical] Respiratory Rate Blood Pressure Blood Pressure Mean Blood Pressure Location Blood Pressure Position O2 Sat by Pulse Oximetry 97 Oxygen Delivery Method Nasal Cannula Nasal Cannula Nasal Cannula Oxygen Flow Rate 2 Telemetry Type Telemetry Monitoring Telemetry Heart Rate Telemetry SPO2 EKG NE Interval EKG QRS Interval Telemetry Strip Reading 02/26/25 04:58 02/26/25 05:00 02/26/25 06:00 Temperature 97.8 F Temperature Source Temporal Artery Scan Pulse Rate 139 H Pulse Rate [Apical] Respiratory Rate 24 H Blood Pressure 94/51 L Blood Pressure Mean 65 Blood Pressure Location Left Arm Blood Pressure Position Supine O2 Sat by Pulse Oximetry 98 97 Oxygen Delivery Method Nasal Cannula Nasal Cannula Nasal Cannula Oxygen Flow Rate 2 2 Telemetry Type Telemetry Monitoring Telemetry Heart Rate Telemetry SPO2 EKG NE Interval EKG QRS Interval Telemetry Strip Reading 02/26/25 06:00 02/26/25 07:00 02/26/25 07:00 Temperature Temperature Source Pulse Rate Pulse Rate [Apical] Respiratory Rate Blood Pressure Blood Pressure Mean Blood Pressure Location Blood Pressure Position O2 Sat by Pulse Oximetry Oxygen Delivery Method Nasal Cannula Nasal Cannula Oxygen Flow Rate Telemetry Type Remote Telemetry Telemetry Monitoring Continues Telemetry Heart Rate 141 H Telemetry SPO2 97 EKG NE Interval 0.18 EKG QRS Interval 0.[address] 02/26/25 08:00 02/26/25 09:00 02/26/25 10:00 Temperature 96.9 F L Temperature Source Temporal Artery Scan Pulse Rate 62 Pulse Rate [Apical] Respiratory Rate 16 Blood Pressure 81/51 L Blood Pressure Mean 61 Blood Pressure Location Left Arm Blood Pressure Position O2 Sat by Pulse Oximetry 97 Oxygen Delivery Method Nasal Cannula Nasal Cannula Nasal Cannula Oxygen Flow Rate 2 Telemetry Type Telemetry Monitoring Telemetry Heart Rate Telemetry SPO2 EKG NE Interval EKG QRS Interval Telemetry Strip Reading Additional Comments Additional Comments: I have independently reviewed and interpreted the labs/EKGs/imaging ordered during this hospital stay. I have reviewed outside records that are available in our EMR that pertain to medical stay including imaging/notes/labs from previous visits. Active Medications Active Medications: Medications Generic Name Dose Route Start Last Admin Trade Name Freq PRN Reason Stop Dose Admin Lorazepam 1 mg 02/24/25 22:11 Lorazepam Inj 2 Mg/Ml Vial IVP Q4H PRN Agitation Morphine Sulfate 2 mg 02/24/25 22:11 02/26/25 05:56 Morphine Sulfate 2 Mg/Ml Syringe IVP 2 mg Q4H PRN Administration MODERATE PAIN Ondansetron HCl 4 mg 02/24/25 22:11 Ondansetron Hcl/Pf 4 Mg/2 Ml Sdv IVP Q6H PRN Nausea / Vomiting Tizanidine HCl 4 mg 02/24/25 22:14 Tizanidine Hcl 4 Mg Tablet PO Q8H PRN Spasms Plan Plan: 1. Comfort Measures - morphine 2 mg Q4H prn, ativan 1 mg Q4H prn, turn q2, diet as patient tolerates Patient requires mod-max assistance with ADLs, has lost 40 lbs in 1 month, declines further life-prolonging treatment, has known lung mass to the L main bronchus, back pain has progressively worsened and is unbearable per patient, has refractory pleural effusions present on CTA, and has continued dyspnea due to nature of cancer. This patient would highly benefit from hospice services at this time. [facility] following. DVT Prophylaxis: None, comfort measures only Dispo: Unable to d/c home due to inability for hospice to care for patient until Thursday. Admitting inpatient due to >48 hours of observation services. Review Statement Review Statement: I have personally discussed and reviewed the patient's visit/currently labs/imaging/decision making with Dr. Escobar, my supervising attending. Greater that 50 minutes spent with patient, 50% of the time spent with this patient was devoted to counseling and coordination of care.
[2025-02-27] MEDS: ATIVAN IVP PRN (09:33)
--- NOTE | 2025-02-27 14:35 | PCM.PROG ---
Date/Time Seen Date Seen by Provider: 02/27/25 Time Seen by Provider: 08:40 Provider Provider: Tami Christy PA-C, [facility] Chief Complaint Chief Complaint: SOB/HEART ISSUES Subjective Subjective: Patient has had comfort measures over the weekend. Plan for [facility] to reevaluate tomorrow due to holiday weekend. Reiterated plan with patient and his at bedside. is very on board with hospice plan, feels it is best for him. Patient has questionable responses during conversation, stating he wants hospice and comfort measures and to just "be home". However then backtracks and says he wants to stay in the hospital. Seems somewhat confused. Objective Appearance: Positive Thin, Cachectic and Other (+Alert, oriented, but then seems somewhat confused in conversation ) Chest/Lungs: Positive Other (no air movement of left lung on auscultation, right lung CTA ) Heart: Positive RRR and Tachycardia GI/: Positive Soft, Nontender, Bowel Sounds Normal and No Distention Neurological: Positive Cranial Nerves Intact, Alert and Other (+generalized weakness ) Vital Signs Vital Signs: Vital Signs: Last 24 Hours 02/26/25 15:00 02/26/25 16:00 02/26/25 17:00 Temperature Temperature Source Pulse Rate Pulse Rate [Apical] Respiratory Rate Blood Pressure Blood Pressure Mean Blood Pressure Location Blood Pressure Position O2 Sat by Pulse Oximetry Oxygen Delivery Method Nasal Cannula Nasal Cannula Nasal Cannula Oxygen Flow Rate 02/26/25 18:00 02/26/25 18:00 02/26/25 19:00 Temperature 96.5 F L Temperature Source Temporal Artery Scan Pulse Rate 69 Pulse Rate [Apical] Respiratory Rate 16 Blood Pressure 79/54 L Blood Pressure Mean 62 Blood Pressure Location Left Arm Blood Pressure Position O2 Sat by Pulse Oximetry 95 Oxygen Delivery Method Nasal Cannula Nasal Cannula Nasal Cannula Oxygen Flow Rate 2 2 02/26/25 19:00 02/26/25 20:00 02/26/25 20:00 Temperature Temperature Source Pulse Rate Pulse Rate [Apical] Respiratory Rate Blood Pressure Blood Pressure Mean Blood Pressure Location Blood Pressure Position O2 Sat by Pulse Oximetry Oxygen Delivery Method Nasal Cannula Nasal Cannula Nasal Cannula Oxygen Flow Rate 02/26/25 20:00 02/26/25 21:00 02/26/25 21:00 Temperature Temperature Source Pulse Rate Pulse Rate [Apical] 138 H Respiratory Rate Blood Pressure Blood Pressure Mean Blood Pressure Location Blood Pressure Position O2 Sat by Pulse Oximetry Oxygen Delivery Method Nasal Cannula Nasal Cannula Nasal Cannula Oxygen Flow Rate 2 02/26/25 22:00 02/26/25 22:00 02/26/25 22:00 Temperature 97.7 F Temperature Source Temporal Artery Scan Pulse Rate 132 H Pulse Rate [Apical] Respiratory Rate 24 H Blood Pressure 95/65 Blood Pressure Mean 75 Blood Pressure Location Left Arm Blood Pressure Position Supine O2 Sat by Pulse Oximetry 97 Oxygen Delivery Method Nasal Cannula Nasal Cannula Nasal Cannula Oxygen Flow Rate 2 02/26/25 23:00 02/27/25 00:00 02/27/25 01:00 Temperature Temperature Source Pulse Rate Pulse Rate [Apical] Respiratory Rate Blood Pressure Blood Pressure Mean Blood Pressure Location Blood Pressure Position O2 Sat by Pulse Oximetry Oxygen Delivery Method Nasal Cannula Nasal Cannula Nasal Cannula Oxygen Flow Rate 02/27/25 02:00 02/27/25 02:00 02/27/25 03:00 Temperature Temperature Source Pulse Rate 132 H Pulse Rate [Apical] Respiratory Rate Blood Pressure Blood Pressure Mean Blood Pressure Location Blood Pressure Position O2 Sat by Pulse Oximetry 99 Oxygen Delivery Method Nasal Cannula Nasal Cannula Nasal Cannula Oxygen Flow Rate 2 02/27/25 04:00 02/27/25 05:00 02/27/25 05:01 Temperature Temperature Source Pulse Rate Pulse Rate [Apical] Respiratory Rate Blood Pressure Blood Pressure Mean Blood Pressure Location Blood Pressure Position O2 Sat by Pulse Oximetry 98 Oxygen Delivery Method Nasal Cannula Nasal Cannula Nasal Cannula Oxygen Flow Rate 2 02/27/25 05:55 02/27/25 06:00 02/27/25 07:00 Temperature 97.1 F L Temperature Source Temporal Artery Scan Pulse Rate 65 Pulse Rate [Apical] Respiratory Rate 20 Blood Pressure 99/68 Blood Pressure Mean 78 Blood Pressure Location Left Arm Blood Pressure Position Supine O2 Sat by Pulse Oximetry 99 Oxygen Delivery Method Nasal Cannula Nasal Cannula Nasal Cannula Oxygen Flow Rate 2 02/27/25 08:00 02/27/25 09:00 02/27/25 10:00 Temperature Temperature Source Pulse Rate Pulse Rate [Apical] Respiratory Rate Blood Pressure Blood Pressure Mean Blood Pressure Location Blood Pressure Position O2 Sat by Pulse Oximetry Oxygen Delivery Method Nasal Cannula Nasal Cannula Nasal Cannula Oxygen Flow Rate 02/27/25 10:00 02/27/25 10:00 02/27/25 11:00 Temperature 97.0 F L Temperature Source Temporal Artery Scan Pulse Rate 127 H Pulse Rate [Apical] Respiratory Rate 18 Blood Pressure 72/48 L Blood Pressure Mean 56 Blood Pressure Location Right Arm Blood Pressure Position Supine O2 Sat by Pulse Oximetry 95 92 L Oxygen Delivery Method Nasal Cannula Nasal Cannula Nasal Cannula Oxygen Flow Rate 2 2 02/27/25 12:00 02/27/25 13:00 02/27/25 13:44 Temperature Temperature Source Pulse Rate Pulse Rate [Apical] Respiratory Rate Blood Pressure Blood Pressure Mean Blood Pressure Location Blood Pressure Position O2 Sat by Pulse Oximetry Oxygen Delivery Method Nasal Cannula Nasal Cannula Nasal Cannula Oxygen Flow Rate 2 Additional Comments Additional Comments: I have independently reviewed and interpreted the labs/EKGs/imaging ordered during this hospital stay. I have reviewed outside records that are available in our EMR that pertain to medical stay including imaging/notes/labs from previous visits. Active Medications Active Medications: Medications Generic Name Dose Route Start Last Admin Trade Name Freq PRN Reason Stop Dose Admin Lorazepam 1 mg 02/24/25 22:11 02/27/25 09:33 Lorazepam Inj 2 Mg/Ml Vial IVP 1 mg Q4H PRN Administration Agitation Morphine Sulfate 2 mg 02/24/25 22:11 02/27/25 14:25 Morphine Sulfate 2 Mg/Ml Syringe IVP 2 mg Q4H PRN Administration MODERATE PAIN Ondansetron HCl 4 mg 02/24/25 22:11 Ondansetron Hcl/Pf 4 Mg/2 Ml Sdv IVP Q6H PRN Nausea / Vomiting Tizanidine HCl 4 mg 02/24/25 22:14 Tizanidine Hcl 4 Mg Tablet PO Q8H PRN Spasms Plan Plan: 1. Comfort measures - morphine 2 mg Q4H prn, ativan 1 mg Q4H prn, turn q2, diet as patient tolerates 2. Small cell lung cancer, left 3. Hx of vtach 4. Systolic HFrEF 5. COPD 6. Recent pneumonia 7. Malnutrition, BMI 17.8 Patient requires mod-max assistance with ADLs, has lost 40 lbs in 1 month, dec lines further life-prolonging treatment, has known lung mass (occupying most of the lung) to the L main bronchus, back pain has progressively worsened and is unbearable per patient, has refractory pleural effusions present on CTA, and has continued dyspnea due to nature of cancer. This patient would highly benefit from hospice services at this time. Hospitalist over the weekend had multiple conversations regarding goals of care with patient and his and it was decided on hospice consult. [facility]waiting [facility] to consult tomorrow morning (holiday weekend). Patient seemed unsure/unclear on goals today but also seemed somewhat confused. Reevaluated patient multiple times to discuss further but he continues to rest. DVT Prophylaxis: None, comfort measures only Review Statement Review Statement: I have personally discussed and reviewed the patient's visit/currently labs/imaging/decision making with Dr. Escobar, my supervising attending. Greater that 50 minutes spent with patient, 50% of the time spent with this patient was devoted to counseling and coordination of care.
--- NOTE | 2025-02-28 12:04 | PCM.PROG ---
Date/Time Seen Date Seen by Provider: 02/28/25 Time Seen by Provider: 08:40 Provider Provider: Tami Christy PA-C, [facility] Chief Complaint Chief Complaint: SOB/HEART ISSUES Subjective Subjective: Patient oriented to self, hospital, and time today. Not very conversational. States he's having some pain. He is in agreement with hospice today. is as well. [facility] is getting things ready for him to go home, won't be ready until tomorrow. Objective Appearance: Positive Thin, Cachectic and Other (+oriented) Chest/Lungs: Positive Other (no air movement of left lung on auscultation, right lung CTA ) Heart: Positive RRR and Tachycardia GI/: Positive Soft, Nontender, Bowel Sounds Normal and No Distention Neurological: Positive Cranial Nerves Intact, Alert and Other (+generalized weakness ) Vital Signs Vital Signs: Vital Signs: Last 24 Hours 02/27/25 13:00 02/27/25 13:44 02/27/25 14:00 Temperature Temperature Source Pulse Rate Respiratory Rate Blood Pressure Blood Pressure Mean Blood Pressure Location Blood Pressure Position O2 Sat by Pulse Oximetry Oxygen Delivery Method Nasal Cannula Nasal Cannula Nasal Cannula Oxygen Flow Rate 2 02/27/25 14:00 02/27/25 15:00 02/27/25 16:00 Temperature 96.1 F L Temperature Source Temporal Artery Scan Pulse Rate 70 Respiratory Rate 16 Blood Pressure 101/61 Blood Pressure Mean 74 Blood Pressure Location Right Arm Blood Pressure Position Supine O2 Sat by Pulse Oximetry 99 Oxygen Delivery Method Nasal Cannula Nasal Cannula Nasal Cannula Oxygen Flow Rate 2 02/27/25 17:00 02/27/25 18:00 02/27/25 18:00 Temperature 96.7 F L Temperature Source Pulse Rate 67 Respiratory Rate 18 Blood Pressure 116/74 Blood Pressure Mean 88 Blood Pressure Location Blood Pressure Position Supine O2 Sat by Pulse Oximetry 99 Oxygen Delivery Method Nasal Cannula Nasal Cannula Nasal Cannula Oxygen Flow Rate 2 02/27/25 18:52 02/27/25 19:00 02/27/25 19:25 Temperature Temperature Source Pulse Rate Respiratory Rate Blood Pressure Blood Pressure Mean Blood Pressure Location Blood Pressure Position O2 Sat by Pulse Oximetry Oxygen Delivery Method Nasal Cannula Nasal Cannula Nasal Cannula Oxygen Flow Rate 2 2 02/27/25 20:00 02/27/25 21:00 02/27/25 21:56 Temperature 97.7 F Temperature Source Temporal Artery Scan Pulse Rate 94 Respiratory Rate 18 Blood Pressure 93/70 Blood Pressure Mean 77 Blood Pressure Location Left Arm Blood Pressure Position Supine O2 Sat by Pulse Oximetry 96 Oxygen Delivery Method Nasal Cannula Nasal Cannula Nasal Cannula Oxygen Flow Rate 2 02/27/25 22:00 02/27/25 23:00 02/28/25 00:00 Temperature Temperature Source Pulse Rate Respiratory Rate Blood Pressure Blood Pressure Mean Blood Pressure Location Blood Pressure Position O2 Sat by Pulse Oximetry Oxygen Delivery Method Nasal Cannula Nasal Cannula Nasal Cannula Oxygen Flow Rate 02/28/25 01:00 02/28/25 02:00 02/28/25 03:00 Temperature Temperature Source Pulse Rate Respiratory Rate Blood Pressure Blood Pressure Mean Blood Pressure Location Blood Pressure Position O2 Sat by Pulse Oximetry Oxygen Delivery Method Nasal Cannula Nasal Cannula Nasal Cannula Oxygen Flow Rate 02/28/25 04:00 02/28/25 04:50 02/28/25 05:00 Temperature Temperature Source Pulse Rate Respiratory Rate Blood Pressure Blood Pressure Mean Blood Pressure Location Blood Pressure Position O2 Sat by Pulse Oximetry 94 L Oxygen Delivery Method Nasal Cannula Nasal Cannula Nasal Cannula Oxygen Flow Rate 2 02/28/25 05:13 02/28/25 06:00 02/28/25 07:00 Temperature 97.6 F Temperature Source Temporal Artery Scan Pulse Rate 90 Respiratory Rate 14 Blood Pressure 96/60 Blood Pressure Mean 72 Blood Pressure Location Left Arm Blood Pressure Position Supine O2 Sat by Pulse Oximetry 96 Oxygen Delivery Method Nasal Cannula Nasal Cannula Nasal Cannula Oxygen Flow Rate 2 02/28/25 08:00 02/28/25 08:00 02/28/25 09:00 Temperature Temperature Source Pulse Rate Respiratory Rate Blood Pressure Blood Pressure Mean Blood Pressure Location Blood Pressure Position O2 Sat by Pulse Oximetry Oxygen Delivery Method Nasal Cannula Nasal Cannula Nasal Cannula Oxygen Flow Rate 2 02/28/25 09:00 02/28/25 09:48 02/28/25 09:51 Temperature 98.0 F Temperature Source Tympanic Pulse Rate 78 Respiratory Rate 17 Blood Pressure 84/52 L Blood Pressure Mean 62 Blood Pressure Location Left Arm Blood Pressure Position Supine O2 Sat by Pulse Oximetry 97 Oxygen Delivery Method Room Air Nasal Cannula Nasal Cannula Oxygen Flow Rate 2 02/28/25 10:54 Temperature Temperature Source Pulse Rate Respiratory Rate Blood Pressure Blood Pressure Mean Blood Pressure Location Blood Pressure Position O2 Sat by Pulse Oximetry Oxygen Delivery Method Nasal Cannula Oxygen Flow Rate Additional Comments Additional Comments: I have independently reviewed and interpreted the labs/EKGs/imaging ordered during this hospital stay. I have reviewed outside records that are available in our EMR that pertain to medical stay including imaging/notes/labs from previous visits. Active Medications Active Medications: Medications Generic Name Dose Route Start Last Admin Trade Name Freq PRN Reason Stop Dose Admin Lorazepam 1 mg 02/24/25 22:11 02/27/25 09:33 Lorazepam Inj 2 Mg/Ml Vial IVP 1 mg Q4H PRN Administration Agitation Morphine Sulfate 2 mg 02/24/25 22:11 02/28/25 08:40 Morphine Sulfate 2 Mg/Ml Syringe IVP 2 mg Q4H PRN Administration MODERATE PAIN Ondansetron HCl 4 mg 02/24/25 22:11 Ondansetron Hcl/Pf 4 Mg/2 Ml Sdv IVP Q6H PRN Nausea / Vomiting Sodium Chloride 1 syr 02/27/25 21:00 02/28/25 05:51 0.9% Sodium Chloride 10 Ml Disp.Syrin IVF 1 syr Q8HR NISHANT Administration Tizanidine HCl 4 mg 02/24/25 22:14 Tizanidine Hcl 4 Mg Tablet PO Q8H PRN Spasms Plan Plan: 1. Comfort measures - morphine 2 mg Q4H prn, ativan 1 mg Q4H prn, turn q2, diet as patient tolerates 2. Small cell lung cancer, left 3. Hx of vtach 4. Systolic HFrEF 5. COPD 6. Recent pneumonia 7. Malnutrition, BMI 17.8 Patient requires mod-max assistance with ADLs, has lost 40 lbs in 1 month, declines further life-prolonging treatment, has known lung mass (occupying most of the lung) to the L main bronchus, back pain has progressively worsened and is unbearable per patient, has refractory pleural effusions present on CTA, and has continued dyspnea due to nature of cancer. This patient would highly benefit from hospice services at this time. [facility]ice [facility] is setting up for him to go home tomorrow. DVT Prophylaxis: None, comfort measures only Review Statement Review Statement: I have personally discussed and reviewed the patient's visit/currently labs/imaging/decision making with Dr. Escobar, my supervising attending. Greater that 50 minutes spent with patient, 50% of the time spent with this patient was devoted to counseling and coordination of care.
--- NOTE | 2025-03-01 08:27 | DCSUM ---
Admission Date Admission Date: 02/24/25 Discharge Date Discharge Date: 03/01/25 Admission Diagnosis Admission Diagnosis: 1. Comfort measures Discharge Diagnosis Discharge Diagnosis: 1. Comfort measures 2. Small cell lung cancer, left 3. Hx of vtach 4. Systolic HFrEF 5. COPD 6. Recent pneumonia 7. Malnutrition, BMI 17.8 8. Pulmonary Embolism Hospital Provider Hospital Provider: JULIETTE GONZÁLES PA-C, [facility] Physician Primary Care Physician: JORDAN QUINTANILLA MD Summary of History and Physical Summary of History and Physical: 59 yo male with recent diagnosis of lung mass, ventricular tachycardia, systolic HFrEF, and COPD presented to the ER for shortness of breath. 02/02/25: Patient collapsed at home. EMS found patient to be in vtach. He was given adenosine, then cardioverted, with return to sinus rhythm. Admitted to ICU where he was initially hypotensive. Placed on amiodarone drip per Cardiology. Declined LifeVest and AICD placement. Cardiac MRI requested. Patient then became DNR and declined additional aggressive management. While awaiting hospice arrangements on 02/03/25, patient decided he would like to undergo further testing. Reassessment by cardiology continued oral amiodarone, daily EKGs and no recurrence of arrhythmias. Patient was found to have a left lower lobe lung mass likely malignant with associated left pleural effusion, and mediastinal lymphadenopathy. Repeat echo showed decreased systolic function. EF 41-45%. Patient had noticed hypercalcemia likely associated with malignant neoplasm. On 02/08/25, he underwent a fiberoptic bronchoscopy, endobronchial ultrasound, and transbronchial needle aspiration by Dr. Basilio of Pulmonology. 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 Recommended follow-up with [facility] regarding systolic heart failure upon discharge. Heart cath completed by [facility] in January with no CAD prior to admission. A referral was made to hem/onc and recommend leather stretcher to follow biopsy results. Patient was also seen in this ER on 02/17. CT scan at that time showed segmental PE as well as poss consolidation and discharged home with eliquis (in which he was unable to fill and afford), cefepime, azith, and steroids. He returned to [facility] ER on 02/19/25 and was told to continue his antibiotics, lease picker his Rx for eliquis, and given a dose of lasix. Admitted to this facility on 02/20 for superimposed pneumonia on lung cancer. He was treated with zosyn, nebs, and steroids. Procal remained elevated and suspect this is due to malignant lung cancer. Patient had initially been referred to [facility] for lung cancer. However, [place] med[place] thus patient is unable to receive care due to cost. New referrals sent to [facility] hem/onc and pulmonology. Started on norco for pain control due to continued complaints of back pain during stay. Of note, patient was noted to have PE during CTA completed on 02/17. Sent home with eliquis but never picked up due to cost. Has not completed high dose course for PE. Samples provided from PCP office. Has received lovenox in house due to making arrangements for discharge anticoagulation. He is to complete 5 days of 10 mg twice a day then 5 mg twice a day thereafter. D/c with rx for duonebs, colace, norco, augmentin, and course of doxycyline. Patient returned to the ER last night for weakness, sob, and unresponsiveness. at bedside providing history. States that he has been taking his medications as prescribed but has not ate or drank much the last 2 days. Last night patient told her he needed to lay down, was in and out of consciousness and she called EMS. Hypotensive when EMS arrived. Lab findings basically unchanged from last date of stay with worsening BNP. ER provider discussed plan of care with patient and at bedside and determined that hospice is the best option at this time. POLST form signed DNR. Admitted to med/surg observation for establishment of hospice. Hospital Course Subjective: Patient has had an overall uneventful stay. He has been on comfort measures receiving morphine and ativan as needed. He has been tachycardic, dyspneic, and hypotensive at times. Hospice of consulted and was able to have him home set up for his arrival today. This had delayed discharge due to holiday weekend, etc. Pt was not able to be discharged home until hospice had been set up for him. He and his are in agreement with plan of care. Appearance: Pleasant, No Apparent Distress, Alert and Other (thin, frail ) HEENT: Supple and Other CVS: Other (RRR, tachy) Abdomen: Soft, Non-Tender and No Distention Respiratory: Other (+dyspnea with exertion ) Extremities: No Edema Vital Signs: Most Recent Vital Signs Temperature 97.2 F L 03/01/25 05:34 Temperature Source Temporal Artery Scan 03/01/25 05:34 Temperature Source Infrared 02/24/25 19:47 Pulse Rate 97 03/01/25 05:34 Respiratory Rate 16 03/01/25 05:34 Blood Pressure 75/52 L 03/01/25 05:34 Blood Pressure Mean 59 03/01/25 05:34 Blood Pressure Left Arm 88/67 02/24/25 22:44 Blood Pressure Location Left Arm 03/01/25 05:34 Blood Pressure Position Supine 03/01/25 05:34 O2 Sat by Pulse Oximetry 98 03/01/25 05:34 Oxygen Delivery Method Nasal Cannula 03/01/25 07:00 Oxygen Flow Rate 2 03/01/25 05:39 Height 5 ft 11 in 02/24/25 22:44 Weight 57.8 kg 02/24/25 22:44 Telemetry Type Remote Telemetry 02/26/25 13:00 Telemetry Monitoring Continues 02/26/25 13:00 Telemetry Heart Rate 141 H 02/26/25 13:00 Telemetry SPO2 95 02/26/25 13:00 EKG ME Interval 0.20 02/26/25 13:00 EKG QRS Interval 0.08 02/26/25 13:[address] 02/26/25 13:00 Discharge Instructions Discharge Planning: Discharge Planning > [address] Emir Quintanilla. Discharge Medications: No home meds Discharge Plan Discharge Discharge Orders: Discharge Patient (ONCE); Ordered 03/01/25 Ordered By: JULIETTE GONZÁLES Activity Restrictions/Additional Instructions: DISCHARGE TO HOME ON HOSPICE [facility] Diet: As tolerated Activity: As tolerated. Use Walker for safety Use your Oxygen at 2l/cannula continuous for comfort with shortness of air Medications: [facility] will Order your medications Instructions: Hospice Care (GEN) Care Plan Goals: Problem: Impaired Respiratory Status Goal: Exhibit optimal respiratory function Instructions: Activities as tolerated Apply oxygen as ordered Elevate head of bed Notify MD of increased congestion Patient Disposition: DISCHARGED TO HOSPICE -HOME Prescriptions: Discontinued albuterol sulfate 90 mcg/actuation HFA aerosol inhaler 2 puff inhalation Q4-6H PRN (Reason: shortness of breath or wheezing) Qty: 8.5 2RF Jardiance 10 mg tablet 10 mg PO DAILY trazodone 50 mg tablet 50 mg PO QHS PRN (Reason: sleep) tizanidine 4 mg tablet 4 mg PO Q8H PRN (Reason: muscle spasticity) magnesium oxide 400 mg (241.3 mg magnesium) tablet 400 mg PO DAILY amiodarone 200 mg tablet 200 mg PO .COMPLEX Rx Instructions: 200 mg orally; Take 1 tablet by mouth every 12 hours for 2 days, then 1 tablet by mouth every 12 hours for 14 days then 1 tablet by mouth daily Eliquis DVT-PE Treat 30D Start 5 mg (74 tabs) tablets,dose pack See Rx Instructions .ROUTE .COMPLEX Qty: 74 0RF Rx Instructions: orally per package directions mirtazapine 15 mg tablet 15 mg PO BEDTIME ipratropium-albuterol 0.5 mg-3 mg(2.5 mg base)/3 mL Solution For Nebulization 3 ml NEB RTQ6H Qty: 180 0RF hydrocodone-acetaminophen 5-325 mg Tablet 1 tab PO Q6HR PRN (Reason: pain) Qty: 60 0RF docusate sodium 100 mg Capsule 100 mg PO DAILY PRN (Reason: constipation) Qty: 30 0RF amoxicillin-pot clavulanate 875-125 mg tablet 1 tab PO BID Qty: 9 0RF Rx Instructions: Take first dose tonight with meal doxycycline hyclate 100 mg capsule 100 mg PO BID Qty: 10 0RF Rx Instructions: Start tomorrow prednisone 20 mg tablet 20 mg PO 2XD potassium chloride 10 mEq tablet extended release 10 meq PO DAILY tramadol 50 mg tablet 50 mg PO Q12HR spironolactone 25 mg tablet 25 mg PO DAILY losartan 25 mg tablet 25 mg PO DAILY diltiazem HCl 120 mg capsule,extended release 24hr 120 mg PO DAILY furosemide 20 mg tablet 20 mg PO DAILY metoprolol succinate 25 mg tablet extended release 24 hr 25 mg PO DAILY Did you review [place] [employer] for ALL controlled substances?: Not Applicable Discussed opioids are addictive and Narcan is available by prescription or from pharmacy.: No Condition: Serious
[2025-03-01 10:56] VITALS: BP 93/68; PULSE 66; RESP 14; TEMP 97.9
== END 2025-03-01 12:56 | disposition hospice, home (50) | DRG 180 ==
LOC: ED 19:38 → MEDSURG B 19:38
PROVIDERS: ADMIT Hospitalist; ATTEND Physician Assistant